=== PATIENT | male | born 1970 | race African-American/Black ===

== ENCOUNTER 2016-12-04 15:05 | Emergency (ER) | payer BC ==
[2016-12-04] MEDS ORDERED: ASPIRIN 81 MG TABLET, CHEWABLE PO ONE (15:51)
[2016-12-04 16:08] LABS: ABSOLUTE EOSINOPHILS # (AUTO) 0.1 10^3/uL (0.0-0.6); ABSOLUTE LYMPHOCYTES (AUTO) 1.1 10^3/uL (0.5-4.7); ABSOLUTE MONOCYTES (AUTO) 0.6 10^3/uL (0.1-1.4); ABSOLUTE NEUT (AUTO) 4.8 10^3/uL (1.7-8.2); BASOPHILS % (AUTO) 0.3 % (0-2); EOSINOPHILS % (AUTO) 1.1 % (0-6); HEMATOCRIT 41.4 % (37.9-51.0); HEMOGLOBIN 13.6 g/dL (13.5-17.0); HGB HCT DIFFERENCE -0.6; LYMPHOCYTES % (AUTO) 17.1 % (13-45); MEAN CORPUSCULAR HEMOGLOBIN 25.4 pg (27.0-33.4); MEAN CORPUSCULAR HGB CONC 32.7 g/dL (32.0-36.0); MEAN CORPUSCULAR VOLUME 78 fl (80-97); MONOCYTES % (AUTO) 8.8 % (3-13); RED BLOOD COUNT 5.34 10^6/uL (4.35-5.55); RED CELL DISTRIBUTION WIDTH 14.3 % (11.5-14.0); SEGMENTED NEUTROPHILS % (AUTO) 72.7 % (42-78); WHITE BLOOD COUNT 6.5 10^3/uL (4.0-10.5)
--- NOTE | 2016-12-04 16:12 | RADIOLOGY REPORT (SQ) ---
EXAM DESCRIPTION: CHEST SINGLE VIEW COMPLETED DATE/TIME: 12/04/2016 4:02 pm REASON FOR STUDY: cp COMPARISON: October 2015 EXAM PARAMETERS: NUMBER OF VIEWS: One view. TECHNIQUE: Single frontal radiographic view of the chest acquired. RADIATION DOSE: NA LIMITATIONS: None. FINDINGS: LUNGS AND PLEURA: No opacities, masses or pneumothorax. No pleural effusion. MEDIASTINUM AND HILAR STRUCTURES: No masses. Contour normal. HEART AND VASCULAR STRUCTURES: Cardiac silhouette remains enlarged and is unchanged in configuration. BONES: No acute findings. HARDWARE: None in the chest. OTHER: No other significant finding. IMPRESSION: No significant interval change. Cardiomegaly. No acute findings. Other findings as no sindi above TECHNICAL DOCUMENTATION: JOB ID: [id number]
[2016-12-04 16:26] LABS: ALANINE AMINOTRANSFERASE 45 U/L (21-72); ALBUMIN 4.2 g/dL (3.5-5.0); ALKALINE PHOSPHATASE 108 U/L (38-126); ANION GAP 12 (5-19); ASPARTATE AMINO TRANSFERASE 25 U/L (17-59); BILIRUBIN,DIRECT 0.3 mg/dL (0.0-0.4); BILIRUBIN,TOTAL 0.5 mg/dL (0.2-1.3); BLOOD UREA NITROGEN 12 mg/dL (7-20); CALCIUM 10.9 mg/dL (8.4-10.2); CARBON DIOXIDE 28 mmol/L (22-30); CHLORIDE 94 mmol/L (98-107); CREATINE KINASE 253 U/L (55-170); CREATININE RESULT 0.94 mg/dL (0.52-1.25); POTASSIUM 4.4 mmol/L (3.6-5.0); TOTAL PROTEIN 7.8 g/dL (6.3-8.2)
[2016-12-04 16:34] LABS: GLUCOSE 546 mg/dL (75-110)
[2016-12-04 16:44] LABS: CREATINE KINASE MB 4.28 ng/mL (<4.55)
--- NOTE | 2016-12-04 16:47 | ER Document Report ---
ED Cardiac - General Mode of Arrival: Ambulatory Information source: Patient TRAVEL OUTSIDE OF THE [place] IN LAST 30 DAYS: No - HPI Patient complains to provider of: Chest pain, Chest tightness, Shortness of breath Similar symptoms previously: Yes Recently seen / treated by doctor: No <JAYCEE ROSA - Last Filed: 12/04/16 19:33> <PATITO SELF - Last Filed: 12/04/16 23:42> - General Chief Complaint: Chest Pain Stated Complaint: CHEST PAIN Time Seen by Provider: 12/04/16 16:36 Notes: Patient is a 46 year old male presenting to the emergency department for chest pain and shortness of breath x1 week. Patient states his CHF is acting up. Patient describes his pain as pressure and constant. Patinet states his shortness of breath has been gradual but was worse today. Patient has gained 10 lbs since Monday. Patient states he takes lasix x3 per day but does not know the dose. Patient has increased chest pain and shortness of breath with exertion and activity. Patient takes ASA daily but did not take any today. Patient was given 4 baby aspirin here in the ED at arrival. Patient denies any nausea, vomiting, diarrhea or history of cardiac catheterization, AR, PE/DVT, or pacemaker/defibrillator. Patient was diagnosed with CHF x1 year ago. Patient' s EEG showed 26%. Patient also has a history of type 2 diabetes mellitus and hypertension. Patient denies any recent medication changes. Patient states he has been eating lots of fruit and he states he didn't know that fruit has a lot of sugar in it. 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 (JAYCEE ROSA) - Related Data Allergies/Adverse Reactions: lisinopril Allergy (Intermediate, Verified 09/20/15 22:47) angioedema shrimp Allergy (Severe, Uncoded 09/20/15 23:06) Swelling of Throat Past Medical History - General Information source: Patient - Social History Smoking Status: Never Smoker Cigarette use (# per day): No Chew tobacco use (# tins/day): No Smoking Education Provided: No Frequency of alcohol use: None Drug Abuse: None Family History: DM, Hypertension Patient has suicidal ideation: No Patient has homicidal ideation: No - Past Medical History Cardiac Medical History: Reports: Hx Congestive Heart Failure, Hx Hypertension Endocrine Medical History: Reports: Hx Diabetes Mellitus Type 2 Past Surgical History: Reports: Hx Orthopedic Surgery - bilateral knee, left wrist - Immunizations Hx Diphtheria, Pertussis, Tetanus Vaccination: Yes <SHELLEYIVANIAJAYCEE - Last Filed: 12/04/16 19:33> Review of Systems - Review of Systems Constitutional: No symptoms reported EENT: No symptoms reported Cardiovascular: See HPI, Chest pain Respiratory: See HPI, Short of breath Gastrointestinal: No symptoms reported Genitourinary: No symptoms reported Male Genitourinary: No symptoms reported Musculoskeletal: See HPI, Leg swelling, Ankle swelling Skin: No symptoms reported Hematologic/Lymphatic: No symptoms reported Neurological/Psychological: No symptoms reported -: Yes All other systems reviewed and negative <JAYCEE ROSA - Last Filed: 12/04/16 19:33> Physical Exam - Vital signs Interpretation: Hypertensive <JAYCEE ROSA - Last Filed: 12/04/16 19:33> <PATITO SELF - Last Filed: 12/04/16 23:42> - Vital signs Vitals: Temp Pulse Resp BP Pulse Ox 97.6 F 99 21 H 150/116 H 97 12/04/16 15:20 12/04/16 15:20 12/04/16 15:20 12/04/16 15:20 12/04/16 15:20 - Notes Notes: GENERAL: Alert, interacts well. Moderate distress. HEAD: Normocephalic, atraumatic. EYES: Appear normal. Pupils equal, round, and reactive to light. ENT: Moist mucus membranes, tongue midline. NECK: Full range of motion. Supple. Trachea midline. LUNGS: Clear to auscultation bilaterally, no wheezes, rales, or rhonchi. No respiratory distress. HEART: Regular rate and rhythm. No murmurs, gallops, or rubs. ABDOMEN: Soft, generalized tenderness throughout, patient states he feels like he has fluid there. Non-distended. Normal bowel sounds. EXTREMITIES: Moves all 4 extremities spontaneously. Normal strength. Lower extremity edema bilaterally. NEUROLOGICAL: Alert and oriented x3. Normal speech. No focal neurological deficits. GSC 15. PSYCH: Normal affect, normal mood. SKIN: Warm, dry, normal turgor. No rashes or lesions noted. (JAYCEE ROSA) Course - Laboratory Result Diagrams: 12/04/16 15:55 12/04/16 15:55 - Consults Dr. Rebeca Time consulted: 17:44 [facility] Time consulted: 18:02 <JAYCEE ROSA - Last Filed: 12/04/16 19:33> - Laboratory Result Diagrams: 12/04/16 15:55 12/04/16 15:55 <PATITO SELF - Last Filed: 12/04/16 23:42> - Re-evaluation Re-evalutation: 12/04/16 18:27 Patient presents emergency department with a chief complaint of chest pain and shortness of breath. Patient is a [id number] diabetic with a history of diagnosis of congestive heart failure 1 year ago. He sees a construction estimator Dr. Mcdonough here. Denies ever having a heart catheterization. He comes in with a 1-1/2 week history of left-sided chest tightness and shortness of breath. He has not been on insulin in the past and was unaware that eating fruits and grapes or sugar. Here on examination initially he denies any chest pain he is not actively short of breath and his blood pressure slightly elevated but is not hypoxic tachypneic or tachycardic. On examination he is well-appearing nontoxic denies any chest pain or pressure lungs are clear abdomen is soft no peripheral edema. Chest x-ray does not show any abnormalities BNP is only in the 200 range but his troponin came back elevated at 0.104. His EKG #1 showed left ventricular hypertrophy IVCD but no acute ST segment elevation or depression. Repeat EKG after he said he was having some chest tightness is unchanged from the previous. He was given nitro and aspirin as well as Lovenox with resolution of the discomfort. I spoke with the on-call construction estimator here who feels the patient needs to be transferred to have a heart catheterization. I spoke with the construction estimator at [facility] Dr. Rosario who has accepted the patient to [facility] pending a heart catheterization. Right now he is chest pain-free hemodynamically stable has received aspirin nitro and Lovenox. We are making arrangements for transfer to the facility. In addition that he is hyperglycemic and has been started on insulin. Patient reassessed at 1845 states he is having some chest discomfort. He received 3 sublingual nitroglycerin still with minimal discomfort EKG #3 unchanged from previous. Repeat troponin pending transfer and is due to occur at the 4 hour interval. He has been given aspirin and Lovenox. 12/04/16 22:00 Patient seen and evaluated and assessed at bedside he is chest pain-free hemodynamically stable they are here to transport him to [facility]. He is awake alert denies any chest pain shortness of breath and there is no respiratory distress. (PATITO SELF) - Vital Signs Vital signs: Temp Pulse Resp BP Pulse Ox 97.6 F 99 21 H 139/76 H 96 12/04/16 15:20 12/04/16 15:20 12/04/16 19:16 12/04/16 21:01 12/04/16 21:01 - Laboratory Laboratory results interpreted by me: 12/04/16 12/04/16 12/04/16 15:55 15:55 15:55 MCV 78 L MCH 25.4 L RDW 14.3 H Sodium 134.0 L Chloride 94 L Glucose 546 H* POC Glucose Calcium 10.9 H Creatine Kinase 253 H NT-Pro-B Natriuret Pep 298 H 12/04/16 18:43 MCV MCH RDW Sodium Chloride Glucose POC Glucose 354 H Calcium Creatine Kinase NT-Pro-B Natriuret Pep - EKG Interpretation by Me Additional EKG results interpreted by me: 12/04/16 18:30 EKG #1 sinus rhythm at 94 bpm with first-degree AV block left ventricular hypertrophy no acute ST segment elevation or depression EKG #2 sinus rhythm at 88 bpm with nonspecific IVCD and left ventricular hypertrophy unchanged from previous 12/04/16 19:04 EKG #3 shows sinus rhythm at 84 bpm nonspecific IVCD no acute ST segment elevation or depression (PATITO SELF) - Consults Dr. Jose Reason for consultation: 12/04/16 18:[address] Jose who recommends the patient needs a cardiac catheterization and the patient should be transferred. (JAYCEE ROSA) [facility] Reason for consultation: 12/04/16 18:02 Contact[address] [facility] for possible transfer, they will call back. 12/04/16 18:[address] Taylor who accepts the patient. (JAYCEE ROSA) Critical Care Note - Critical Care Note Total time excluding time spent on procedures (mins): 70 <PATITO SELF - Last Filed: 12/04/16 23:42> Discharge <EDGREN,JAYCEE - Last Filed: 12/04/16 19:33> <PATITO SELF - Last Filed: 12/04/16 23:42> - Discharge Clinical Impression: Non-STEMI, Hyperglycemia Chest pain Qualifiers: Chest pain type: unspecified Qualified Code(s): R07.9 - Chest pain, unspecified Condition: Stable Disposition: [facility] Referrals: SANJEEV MCDONOUGH MD [Primary Care Provider] - Follow up as needed Scribe Attestation: 12/04/16 19:14 I personally performed the services described in the documentation reviewed the documentation recorded by my scribe in my presence and it accurately and completely records my words and actions (PATITO SELF) Scribe Documentation - Scribe Written by Scrcarolee:: Jese Hernadez 12/04/16 17:37 acting as scribe for :: Claudio <JAYCEE ROSA - Last Filed: 12/04/16 19:33>
[2016-12-04 16:49] LABS: TROPONIN I 0.104 ng/mL
[2016-12-04] MEDS ORDERED: NORMAL SALINE 250 ML IV ONE (17:47)
[2016-12-04] MEDS ORDERED: INSULIN REG, HUMAN 100 UNIT/ML 3 ML VIAL (PYX) IV ONE (17:48)
[2016-12-04] MEDS ORDERED: NITROGLYCERIN 0.4 MG/TAB 25 TAB/BOTTLE SL PRN (18:11)
[2016-12-04] MEDS ORDERED: NITROGLYCERIN 0.4 MG/TAB 25 TAB/BOTTLE ONE (18:12)
[2016-12-04] MEDS ORDERED: NITROGLYCERIN 2% OINTMENT 1 GM PACKET TP ONE (18:46)
[2016-12-04] MEDS ORDERED: ENOXAPARIN SODIUM INJ 100 MG/1 ML DISP.SYRIN SUBCUT SCH (19:15)
[2016-12-04] MEDS ORDERED: ENOXAPARIN SODIUM INJ 100 MG/1 ML DISP.SYRIN SUBCUT ONE (19:45)
[2016-12-04 21:20] VITALS: BP 139/76
[2016-12-05] MEDS ORDERED: ENOXAPARIN SODIUM INJ 100 MG/1 ML DISP.SYRIN SUBCUT SCH (10:00)
--- NOTE | 2016-12-05 13:56 | EKG REPORT ---
SEVERITY:- ABNORMAL ECG - SINUS RHYTHM PROBABLE LEFT ATRIAL ABNORMALITY NONSPECIFIC INTRAVENTRICULAR CONDUCTION DELAY LEFT VENTRICULAR HYPERTROPHY : Confirmed by: Mariana Montano MD 05-Dec-2016 13:56:37
--- NOTE | 2016-12-05 13:57 | EKG REPORT ---
SEVERITY:- ABNORMAL ECG - SINUS RHYTHM FIRST DEGREE AV BLOCK LEFT ATRIAL ABNORMALITY NONSPECIFIC INTRAVENTRICULAR CONDUCTION DELAY LEFT VENTRICULAR HYPERTROPHY : Confirmed by: Mariana Montano MD 05-Dec-2016 13:56:47
--- NOTE | 2016-12-05 13:57 | EKG REPORT ---
SEVERITY:- ABNORMAL ECG - SINUS RHYTHM PROBABLE LEFT ATRIAL ABNORMALITY NONSPECIFIC INTRAVENTRICULAR CONDUCTION DELAY LEFT VENTRICULAR HYPERTROPHY : Confirmed by: Mariana Montano MD 05-Dec-2016 13:56:42
== END 2016-12-04 21:59 | disposition short-term general hospital (02) ==
LOC: ER 15:05
DX: R07.9 Chest pain, unspecified (principal); R06.02 Shortness of breath; I50.9 Heart failure, unspecified; Z79.899 Other long term (current) drug therapy; E11.9 Type 2 diabetes mellitus without complications; I10 Essential (primary) hypertension
CPT/HCPCS: 93005 ×2; 99291; 36415; 82553; 82962; 82550; 85025; 80053; 84484; 83880; 71010; 93010; J1815; J7050

== ENCOUNTER 2017-04-03 09:32 | Observation (INO) | payer BC ==
--- NOTE | 2017-04-03 09:47 | ER Document Report ---
ED Medical Screen (RME) - General Chief Complaint: Chest Pain Stated Complaint: NOSE BLEEDING Time Seen by Provider: 04/03/17 09:45 Notes: Patient has a history of congestive heart failure. He states that he has chest pressure shortness of breath and has had a bloody nose from both sides. He states he has not missed any doses of his medicines. He did take an aspirin this morning. He denies any other type of blood thinners. He says he also has diabetes and his blood sugars have been high. He states that he has had no major surgeries. TRAVEL OUTSIDE OF THE [place] IN LAST 30 DAYS: No - Related Data Allergies/Adverse Reactions: lisinopril Allergy (Intermediate, Verified 04/03/17 09:34) angioedema shrimp Allergy (Severe, Uncoded 04/03/17 09:34) Swelling of Throat Past Medical History - Past Medical History Cardiac Medical History: Reports: Hx Congestive Heart Failure, Hx Hypertension Endocrine Medical History: Reports: Hx Diabetes Mellitus Type 2 Renal/ Medical History: Denies: Hx Peritoneal Dialysis Past Surgical History: Reports: Hx Orthopedic Surgery - bilateral knee, left wrist - Immunizations Hx Diphtheria, Pertussis, Tetanus Vaccination: Yes Physical Exam - Vital signs Vitals: Temp Pulse Resp BP Pulse Ox 97.7 F 83 18 214/132 H 99 04/03/17 09:36 04/03/17 09:36 04/03/17 09:36 04/03/17 09:36 04/03/17 09:36 Course - Vital Signs Vital signs: Temp Pulse Resp BP Pulse Ox 97.7 F 83 18 214/132 H 99 04/03/17 09:36 04/03/17 09:36 04/03/17 09:36 04/03/17 09:36 04/03/17 09:36
[2017-04-03 10:10] LABS: ABSOLUTE BASOPHILS # (AUTO) 0.1 10^3/uL (0.0-0.2); ABSOLUTE EOSINOPHILS # (AUTO) 0.1 10^3/uL (0.0-0.6); ABSOLUTE LYMPHOCYTES (AUTO) 1.7 10^3/uL (0.5-4.7); ABSOLUTE MONOCYTES (AUTO) 0.7 10^3/uL (0.1-1.4); ABSOLUTE NEUT (AUTO) 4.7 10^3/uL (1.7-8.2); BASOPHILS % (AUTO) 0.8 % (0-2); HEMATOCRIT 40.8 % (37.9-51.0); HEMOGLOBIN 13.3 g/dL (13.5-17.0); HGB HCT DIFFERENCE -0.9; LYMPHOCYTES % (AUTO) 23.8 % (13-45); MEAN CORPUSCULAR HEMOGLOBIN 25.2 pg (27.0-33.4); MEAN CORPUSCULAR HGB CONC 32.6 g/dL (32.0-36.0); MEAN CORPUSCULAR VOLUME 77 fl (80-97); MONOCYTES % (AUTO) 9.9 % (3-13); RED BLOOD COUNT 5.28 10^6/uL (4.35-5.55); RED CELL DISTRIBUTION WIDTH 14.4 % (11.5-14.0); SEGMENTED NEUTROPHILS % (AUTO) 64.5 % (42-78); WHITE BLOOD COUNT 7.3 10^3/uL (4.0-10.5)
[2017-04-03] MEDS: NITROGLYCERIN 0.4 MG/TAB 25 TAB/BOTTLE SL PRN ×2 (10:20→10:25)
--- NOTE | 2017-04-03 10:20 | RADIOLOGY REPORT (SQ) ---
EXAM DESCRIPTION: CHEST PA/LAT COMPLETED DATE/TIME: 04/03/2017 10:06 am REASON FOR STUDY: pain COMPARISON: 12/04/2016 EXAM PARAMETERS: NUMBER OF VIEWS: two views TECHNIQUE: Digital Frontal and Lateral radiographic views of the chest acquired. RADIATION DOSE: NA LIMITATIONS: none FINDINGS: LUNGS AND PLEURA: No opacities, masses or pneumothorax. No pleural effusion. MEDIASTINUM AND HILAR STRUCTURES: No masses or contour abnormalities. HEART AND VASCULAR STRUCTURES: Cardiomegaly. No failure. BONES: No acute findings. HARDWARE: None in the chest. OTHER: No other significant finding. IMPRESSION: Cardiomegaly. No failure. TECHNICAL DOCUMENTATION: JOB ID: [id number] [employer]- All Rights Reserved
[2017-04-03 10:32] LABS: ALANINE AMINOTRANSFERASE 37 U/L (21-72); ALBUMIN 4.1 g/dL (3.5-5.0); ALKALINE PHOSPHATASE 87 U/L (38-126); ANION GAP 14 (5-19); ASPARTATE AMINO TRANSFERASE 45 U/L (17-59); BILIRUBIN,DIRECT 0.4 mg/dL (0.0-0.4); BILIRUBIN,TOTAL 0.9 mg/dL (0.2-1.3); BLOOD UREA NITROGEN 14 mg/dL (7-20); CALCIUM 11.2 mg/dL (8.4-10.2); CARBON DIOXIDE 24 mmol/L (22-30); CHLORIDE 103 mmol/L (98-107); CREATININE RESULT 0.76 mg/dL (0.52-1.25); GLUCOSE 162 mg/dL (75-110); POTASSIUM 4.3 mmol/L (3.6-5.0); SODIUM 140.7 mmol/L (137-145); TOTAL PROTEIN 7.4 g/dL (6.3-8.2)
--- NOTE | 2017-04-03 11:13 | ER Document Report ---
ED General - General Chief Complaint: Chest Pain Stated Complaint: NOSE BLEEDING Time Seen by Provider: 04/03/17 09:45 Mode of Arrival: Ambulatory Information source: Patient, Dr. Office Notes: 46-year-old male history of hypertension presents with complaints of chest pain nosebleed. Patient notes that he has been taking his blood pressure medication but noted that he was having a headache. Patient denies any fevers or chills notes the pressure sensations in his chest. Patient had a recent heart catheterization in August and and was told that there is no blockage, patient did contact his zone manager Dr. Montano TRAVEL OUTSIDE OF THE [place] IN LAST 30 DAYS: No - HPI Onset: Other - 3 day duration Onset/Duration: Intermittent Quality of pain: Pressure Severity: Mild Pain Level: 1 Associated symptoms: Chest pain Exacerbated by: Denies Relieved by: Denies Similar symptoms previously: Yes Recently seen / treated by doctor: Yes - Related Data Allergies/Adverse Reactions: shellfish derived Allergy (Severe, Verified 04/03/17 13:13) Swelling of Throat lisinopril Allergy (Intermediate, Verified 04/03/17 09:34) angioedema Past Medical History - Social History Smoking Status: Never Smoker Cigarette use (# per day): No Chew tobacco use (# tins/day): No Smoking Education Provided: No Frequency of alcohol use: None Drug Abuse: None Family History: DM, Hypertension Patient has suicidal ideation: No Patient has homicidal ideation: No - Past Medical History Cardiac Medical History: Reports: Hx Congestive Heart Failure, Hx Hypertension Endocrine Medical History: Reports: Hx Diabetes Mellitus Type 2 Renal/ Medical History: Denies: Hx Peritoneal Dialysis Past Surgical History: Reports: Hx Orthopedic Surgery - bilateral knee, left wrist - Immunizations Hx Diphtheria, Pertussis, Tetanus Vaccination: Yes Review of Systems - Review of Systems Notes: REVIEW OF SYSTEMS: CONSTITUTIONAL : Denies fever, chills, or sweats. Denies recent illness. EENT: Admits to nosebleed CARDIOVASCULAR: Admits to chest pain RESPIRATORY: Denies cough, cold, or chest congestion. Denies shortness of breath, difficulty breathing, or wheezing. GASTROINTESTINAL: Denies abdominal pain or distention. Denies nausea, vomiting , or diarrhea. Denies blood in vomitus, stools, or per rectum. Denies black, tarry stools. Denies constipation. GENITOURINARY: Denies difficulty urinating, painful urination, burning, frequency, blood in urine, or discharge. MUSCULOSKELETAL: Denies back or neck pain or stiffness. Denies joint pain or swelling. SKIN: Denies rash, lesions or sores. HEMATOLOGIC : Denies easy bruising or bleeding. LYMPHATIC: Denies swollen, enlarged glands. NEUROLOGICAL: Denies confusion or altered mental status. Denies passing out or loss of consciousness. Denies dizziness or lightheadedness. Denies headache. Denies weakness or paralysis or loss of use of either side. Denies problems with gait or speech. Denies sensory loss, numbness, or tingling. Denies seizures. PSYCHIATRIC: Denies anxiety or stress. Denies depression, suicidal ideation, or homicidal ideation. ALL OTHER SYSTEMS REVIEWED AND NEGATIVE. Dictation was performed using [employer] voice recognition software PHYSICAL EXAMINATION: GENERAL: Well-appearing, well-nourished and in no acute distress. HEAD: Atraumatic, normocephalic. EYES: Pupils equal round and reactive to light, extraocular movements intact, sclera anicteric, conjunctiva are normal. ENT: Nares patent, oropharynx clear without exudates. Moist mucous membranes. NECK: Normal range of motion, supple without lymphadenopathy LUNGS: Breath sounds clear to auscultation bilaterally and equal. No wheezes rales or rhonchi. HEART: Regular rate and rhythm without murmurs ABDOMEN: Soft, nontender, nondistended abdomen. No guarding, no rebound. No masses appreciated. Musculoskeletal: Normal range of motion, no pitting or edema. No cyanosis. NEUROLOGICAL: Cranial nerves grossly intact. Normal speech, normal gait. Normal sensory, motor exams PSYCH: Normal mood, normal affect. SKIN: Warm, Dry, normal turgor, no rashes or lesions noted. Physical Exam - Vital signs Vitals: Temp Pulse Resp BP Pulse Ox 97.7 F 83 18 214/132 H 99 04/03/17 09:36 04/03/17 09:36 04/03/17 09:36 04/03/17 09:36 04/03/17 09:36 Course - Re-evaluation Re-evalutation: 04/03/17 11:13 Dr Garcia requests patient be admitted 04/03/17 15:20 On arrival the patient was noted to be hypertensive, cardiac enzyme is noted to be elevated and in the positive range, it is during the previous visit that the patient was also noted to have mildly elevated troponin and as a result patient it appears had a heart catheterization performed which was negative. Given these findings I did speak with the patient's zone manager, I did offer the transfer and heparin but zone manager would prefer to keep patient here for further evaluation care he was given nitroglycerin which did improve his blood pressure - Vital Signs Vital signs: Temp Pulse Resp BP Pulse Ox 97.7 F 83 18 169/115 H 99 04/03/17 09:36 04/03/17 09:36 04/03/17 13:02 04/03/17 13:02 04/03/17 13:02 - Laboratory Result Diagrams: 04/03/17 09:54 04/03/17 09:54 Laboratory results interpreted by me: 04/03/17 04/03/17 09:54 09:54 Hgb 13.3 L MCV 77 L MCH 25.2 L RDW 14.4 H Glucose 162 H Calcium 11.2 H - Diagnostic Test Radiology reviewed: Image reviewed, Reports reviewed - EKG Interpretation by Me EKG shows normal: Sinus rhythm, [place], Intervals, QRS Complexes Critical Care Note - Critical Care Note Total time excluding time spent on procedures (mins): 45 Comments: 45 minutes of critical care time spent in direct contact evaluating and reevaluating the patient, treating symptoms, reviewing labs and studies and speaking with family and consultants excluding any procedures Discharge - Discharge Clinical Impression: Hypertensive emergency Congestive heart failure Qualifiers: Congestive heart failure type: unspecified congestive heart failure type Congestive heart failure chronicity: unspecified congestive heart failure chronicity Qualified Code(s): I50.9 - Heart failure, unspecified Chest pain Qualifiers: Chest pain type: unspecified Qualified Code(s): R07.9 - Chest pain, unspecified Condition: Stable Disposition: ADMITTED OBSERVATION Admitting Provider: Hospitalist Unit Admitted: Telemetry
[2017-04-03] MEDS ORDERED: ASPIRIN 325 MG TABLET PO ONE (11:14)
[2017-04-03] MEDS ORDERED: MORPHINE SULFATE 10 MG/ML INJ IV ONE (11:15)
[2017-04-03] MEDS ORDERED: ACETAMINOPHEN 325 MG TABLET PO PRN (12:38)
[2017-04-03] MEDS ORDERED: IPRATROPIUM/ALBUTEROL 0.5-2.5 MG/3 ML AMPUL NEB PRN (12:38)
[2017-04-03] MEDS ORDERED: LABETALOL HCL INJ 20 MG/4 ML DISP.SYRIN IV PRN (13:05)
--- NOTE | 2017-04-03 13:57 | EKG REPORT ---
SEVERITY:- ABNORMAL ECG - SINUS RHYTHM FIRST DEGREE AV BLOCK LEFT ATRIAL ABNORMALITY NONSPECIFIC INTRAVENTRICULAR CONDUCTION DELAY : Confirmed by: Jennifer Jose 03-Apr-2017 13:56:49
[2017-04-03] MEDS: NICARDIPINE HCL RTU, ISO-OS 20 MG/200 ML RTUINJ IV PRN ×2 (16:09→21:38)
[2017-04-03] MEDS ORDERED: DEXTROSE 40% GEL 15 GM TUBE PO PRN ×2 (17:05)
[2017-04-03] MEDS ORDERED: GLUCAGON,HUMAN RECOMB 1 MG INJ IM PRN (17:05)
[2017-04-03] MEDS ORDERED: DEXTROSE 50%-WATER 25 GM/50 ML DISP.SYRIN IV PRN ×2 (17:05)
--- NOTE | 2017-04-03 17:13 | PDOC H&P ---
History of Present Illness Admission Date/PCP: 04/03/17 11:56 SANJEEV MCDONOUGH MD History of Present Illness: TANYA CLEARY JR is a 46 year old -[place] male with past medical history significant for hypertension, congestive heart failure with a last known EF of 25%, dyslipidemia diabetes mellitus who presents to the service with elevated blood pressure. Patient states today that he developed a headache , nosebleed 4 and pain in the back of his head. Patient states that on Monday his water was cut off. He states he has been limited his home for the last 4 years and he did not understand why his water suddenly got cut off. He feels that the water people should have contacted him prior to doing that. Patient states that he had the plate $200 again to cut back on. He says that this made his blood boil. He states that he is not a violent man and that he usually holds his anger and. Holding this anger in is what caused his blood pressure to go up. The patient essentially says he has been festering about this water issue over the weekend and that that is why his blood pressure is up. He felt that his blood pressure was likely up so he checked it. He got elevated numbers in the 200s and proceeded to Dr. Mcdonough's office. Dr. Mcdonough redirected him to come into the ED. On arrival the patient's blood pressure was 230/140. He was given a nitroglycerin tablet and morphine. This brought his blood pressure down to 170/120. Patient currently complains of headache and chest pain. Patient states he has some nausea as well as some intermittent shortness of breath. His nosebleeds have stopped. In the past he has been admitted for this and was found to be noncompliant. The patient states that he is turned that around that he is been very compliant with his medications and takes them every day. Past Medical History Cardiac Medical History: Reports: Congestive Heart Failure, Hypertension Endocrine Medical History: Reports: Diabetes Mellitus Type 2 Past Surgical History Past Surgical History: Reports: Orthopedic Surgery - bilateral knee, left wrist Social History Smoking Status: Never Smoker Frequency of Alcohol Use: None Hx Recreational Drug Use: No Drugs: None Hx Prescription Drug Abuse: No - Advance Directive Resuscitation Status: Full Code Family History Family History: DM, Hypertension Parental Family History Reviewed: Yes Children Family History Reviewed: Yes Sibling(s) Family History Reviewed.: Yes Medication/Allergy Home Medications: Amlodipine Besylate [Norvasc 10 mg Tablet] 10 mg PO DAILY 04/03/17 Furosemide [Lasix 40 mg Tablet] 40 mg PO BID 04/03/17 Insulin Glargine,Hum.rec.anlog [Lantus Insulin 100 Unit/1 ml 10 ml] 14 units SUBCUT QHS 04/03/17 Insulin Lispro [Humalog Insulin (Lispro) 100 unit/mL] 2 units SUBCUT MEALS 04/03 Metformin HCl [Glucophage 500 mg Tablet] 500 mg PO BID 04/03/17 Metoprolol Succinate [Toprol Xl 25 mg Tab.sr] 75 mg PO DAILY 04/03/17 Allergies/Adverse Reactions: shellfish derived Allergy (Severe, Verified 04/03/17 13:13) Swelling of Throat lisinopril Allergy (Intermediate, Verified 04/03/17 09:34) angioedema Review of Systems Review of Systems: Review of systems is positive for that listed in the HPI. In addition to that the patient states he has a bit of abdominal pain. He says that he has left elbow and left wrist arthritis. He also states he has had diarrhea 4 times today. He denies any fevers, chills, blood in urine, blood in the stool, throwing up blood or coughing up blood. He denies constipation or any sick contacts. He states that he is been trying to lose weight. He says that he has been successful but that this last few pounds have been unintentional. Physical Exam Vital Signs: Temp Pulse Resp BP Pulse Ox 97.7 F 83 20 182/129 H 100 04/03/17 09:36 04/03/17 09:36 04/03/17 12:02 04/03/17 12:02 04/03/17 12:02 GENERAL: This is a well-developed well-nourished appearing -[place] male resting in bed currently in no acute distress. HEENT: Normocephalic. Atraumatic. Sclera are and icterus. Moist mucous membranes. Trachea is midline. No submandibular lymphadenopathy. HEART: Regular rate and rhythm. No murmurs, rubs or gallops. LUNGS: Clear to auscultation bilaterally with equal rise and fall of the chest. ABDOMEN: Soft, nontender, nondistended with normoactive bowel sounds EXTREMETIES: No clubbing, cyanosis or edema. 2+ peripheral pulses bilaterally. Strength is 5 out of 5 in both the upper and lower extremities bilaterally. NEURO: Awake, alert and oriented 3. Cranial nerves II through XII are specifically intact. Results Impressions: Chest X-Ray 04/03/17 09:46 IMPRESSION: Cardiomegaly. No failure. Assessment & Plan - Diagnosis (1) Hypertensive emergency Plan: Patient's blood pressure is still extremely elevated. As needed labetalol is ordered. The patient will be started on a Cardene drip. We will cancel all of his home medications for now. Patient will go to the ICU so that the Cardizem drip can be appropriately titrated. Dr. Mcdonough will be following. (2) Chest pain Qualifiers: Chest pain type: unspecified Qualified Code(s): R07.9 - Chest pain, unspecified Plan: Likely secondary to the patient's hypertensive emergency. Troponins are slightly bumped. I suspect that this is due to strain placed on his heart. Repeat troponins 2. (3) Congestive heart failure Qualifiers: Congestive heart failure type: systolic Congestive heart failure chronicity : chronic Qualified Code(s): I50.22 - Chronic systolic (congestive) heart failure Plan: Last known EF was 25%. The patient usually follows with Dr. Mcdonough. Right now the patient looks very euvolemic. Continue to monitor. (4) Diabetes mellitus type II, controlled Plan: Q. before meals at bedtime blood sugars. Diabetic diet. Verify home medications. Sliding scale insulin. - Time Time Spent: 50 to 70 Minutes Anticipated discharge: Home Within: within 48 hours
[2017-04-03] MEDS: FUROSEMIDE 40 MG TABLET PO SCH (17:35)
[2017-04-03] MEDS ORDERED: HYDRALAZINE HCL 50 MG TABLET PO SCH (18:00)
[2017-04-03] MEDS: MORPHINE SULFATE 10 MG/ML INJ IV PRN (19:20)
[2017-04-03] MEDS ORDERED: METOPROLOL SUCCINATE 50 MG TAB.SR.24H PO SCH (22:00)
[2017-04-03] MEDS ORDERED: ATORVASTATIN CALCIUM 20 MG TABLET PO SCH (22:00)
[2017-04-03] MEDS ORDERED: AMLODIPINE BESYLATE 5 MG TABLET PO SCH (22:00)
[2017-04-03] MEDS: INSULIN REG, HUMAN 100 UNIT/ML 3 ML VIAL (PYX) SUBCUT SCH (23:01)
[2017-04-04] MEDS: MORPHINE SULFATE 10 MG/ML INJ IV PRN (03:16)
[2017-04-04 04:19] LABS: HEMATOCRIT 41.2 % (37.9-51.0); HEMOGLOBIN 13.4 g/dL (13.5-17.0); MEAN CORPUSCULAR HEMOGLOBIN 25.1 pg (27.0-33.4); MEAN CORPUSCULAR HGB CONC 32.5 g/dL (32.0-36.0); MEAN CORPUSCULAR VOLUME 77 fl (80-97); RED BLOOD COUNT 5.33 10^6/uL (4.35-5.55); RED CELL DISTRIBUTION WIDTH 14.6 % (11.5-14.0); WHITE BLOOD COUNT 7.7 10^3/uL (4.0-10.5)
[2017-04-04] MEDS: NICARDIPINE HCL RTU, ISO-OS 20 MG/200 ML RTUINJ IV PRN (04:31)
[2017-04-04 04:35] LABS: ANION GAP 14 (5-19); BLOOD UREA NITROGEN 12 mg/dL (7-20); CALCIUM 10.9 mg/dL (8.4-10.2); CARBON DIOXIDE 25 mmol/L (22-30); CHLORIDE 103 mmol/L (98-107); CREATININE RESULT 0.78 mg/dL (0.52-1.25); GLUCOSE 246 mg/dL (75-110); POTASSIUM 3.6 mmol/L (3.6-5.0); SODIUM 141.5 mmol/L (137-145)
[2017-04-04] MEDS: INSULIN REG, HUMAN 100 UNIT/ML 3 ML VIAL (PYX) SUBCUT SCH ×2 (07:11→11:14)
[2017-04-04] MEDS: FUROSEMIDE 40 MG TABLET PO SCH (09:17)
[2017-04-04] MEDS ORDERED: AMLODIPINE BESYLATE 10 MG TABLET PO SCH (10:00)
[2017-04-04] MEDS ORDERED: METOPROLOL SUCCINATE 25 MG TAB.SR.24H PO SCH (10:00)
--- NOTE | 2017-04-04 12:32 | Physician Advisory Note ---
Physician Advisor ProgressNote .: [facility] I have reviewed the medical record for this patient. Physician Advisor Statement: Please consider documentin. "chronic systolic CHF" 2. Medical necessity - Please document explicitly the ongoing clinical concerns today- what he could develop in this setting if not kept in hospital again tonight. Could potentially be appropriate to change to Inpt status today depending on level of attending concern/severity of illness/intensity of service. - Continuing to need Cardene drip, or will be weaned off in a couple hrs? - Continuing to have concerning sx, or resolved? - Repeated tachypnea & bradypneas since coming in worrisome, or just felt to be from chronic MORAIMA that needs CPAP? - Sx of weak/dizzy/pale/diaphoretic at 22:45 with BP in 128-140/70-107 range concerning for how well he will tolerate BP control, reason to continue to monitor more closely than the average HTN pt? Status: appropriately came in as Outpt Obs. If attending finds pt unsafe for d /c today - see above. CK
[2017-04-04 14:29] VITALS: BP 180/105
--- NOTE | 2017-04-04 15:10 | PDOC DISCHARGE SUMMARY ---
General - Admit/Disc Date/PCP Admission Date/Primary Care Provider: 04/03/17 11:56 SANJEEV MCDONOUGH MD Discharge Date: 04/04/17 - Discharge Diagnosis (1) Hypertensive emergency Is this a current diagnosis for this admission?: Yes Summary: Patient's blood pressure has improved. We have increased his Toprol to 100 mg daily. (2) Chest pain Is this a current diagnosis for this admission?: Yes Summary: Patient's troponins were slightly elevated however they were flat and this was most likely secondary to his uncontrolled hypertension. He has had no further chest pain since control of his blood pressure. (3) Congestive heart failure Is this a current diagnosis for this admission?: Yes Summary: Made worse by his blood pressure. He denies any shortness of breath currently. (4) Diabetes mellitus type II, controlled Is this a current diagnosis for this admission?: Yes (5) MORAIMA (obstructive sleep apnea) Is this a current diagnosis for this admission?: Yes - Additional Information Resuscitation Status: Full Code Discharge Diet: Cardiac, Diabetic Discharge Activity: Activity As Tolerated, Balance Activity w/Rest, Weigh Daily Home Medications: Amlodipine Besylate [Norvasc 10 mg Tablet] 10 mg PO DAILY #30 tablet 04/04/17 Atorvastatin Calcium [Lipitor 20 mg Tablet] 20 mg PO QHS #30 tablet 04/04/17 Furosemide [Lasix 40 mg Tablet] 40 mg PO BID #60 tablet 04/04/17 Insulin Glargine,Hum.rec.anlog [Lantus Insulin 100 Unit/1 ml 10 ml] 14 units SUBCUT QHS 30 Days #1 unit 04/04/17 Insulin Lispro [Humalog Insulin (Lispro) 100 unit/mL] 2 units SUBCUT MEALS 30 Days unit 04/04/17 Metformin HCl [Glucophage 500 mg Tablet] 500 mg PO BID #60 tablet 04/04/17 Metoprolol Succinate [Toprol Xl 25 mg Tab.sr] 100 mg PO DAILY #30 tab.sr.24h History of Present Illness History of Present Illness: TANYA CLEARY JR is a 46 year old male with a history of hypertension as well as systolic congestive heart failure who presented with elevated blood pressures. The patient has had problems with headache and epistaxis for the last several days. The patient has been very agitated because his water was cut off in spite of him pain his bills. Patient went to his plastics fabricator and assembler office and was found to have a blood pressure of 230/140. Patient was given nitroglycerin and came to the emergency room. The patient did have an episode of chest pain but has been pain-free since then. He is admitted for treatment of his hypertensive emergency. Hospital Course Hospital Course: 46-year-old male who presented with hypertensive emergency as well as some chest discomfort. The patient's blood pressure was lowered and his chest pain resolved. The patient had troponins checked and they were slightly elevated however they remain flat consistent with hypertensive causes for the elevation. Patient had no further chest pain. His Toprol was increased to 100 mg daily and his blood pressure was under adequate control. Was felt that he was stable for discharge to home. The patient's other medical problems were stable during this hospitalization. Physical Exam Vital Signs: Temp Pulse Resp BP Pulse Ox 97.6 F 76 25 H 180/105 H 98 04/04/17 14:26 04/04/17 14:26 04/04/17 14:26 04/04/17 14:26 04/04/17 14:26 Intake & Output 04/03/17 04/04/17 04/05/17 06:59 06:59 06:59 Intake Total 300 420 Output Total 2950 850 Balance -2650 -430 Weight 115.7 kg General appearance: PRESENT: no acute distress Eye exam: PRESENT: conjunctiva pink. ABSENT: scleral icterus Mouth exam: PRESENT: dry mucosa Neck exam: ABSENT: JVD Respiratory exam: PRESENT: clear to auscultation walter. ABSENT: rales, rhonchi, wheezes Cardiovascular exam: PRESENT: RRR. ABSENT: diastolic murmur, rubs, systolic murmur GI/Abdominal exam: PRESENT: normal bowel sounds, soft. ABSENT: distended, guarding, mass, organolmegaly, rebound, tenderness Extremities exam: ABSENT: calf tenderness, clubbing, pedal edema Neurological exam: PRESENT: alert, awake, oriented to person, oriented to place , oriented to time, oriented to situation, CN II-XII grossly intact. ABSENT: motor sensory deficit Psychiatric exam: PRESENT: appropriate affect Skin exam: PRESENT: dry, intact, warm. ABSENT: cyanosis, rash Results Laboratory Results: 04/04/17 03:57 04/04/17 03:57 04/04/17 04/04/17 03:57 03:57 WBC 7.7 RBC 5.33 Hgb 13.4 L Hct 41.2 MCV 77 L MCH 25.1 L MCHC 32.5 RDW 14.6 H Plt Count 151 Sodium 141.5 Potassium 3.6 Chloride 103 Carbon Dioxide 25 Anion Gap 14 BUN 12 Creatinine 0.78 Est GFR ( Amer) > 60 Est GFR (Non-Af Amer) > 60 Glucose 246 H Calcium 10.9 H Magnesium 2.0 04/03/17 04/04/17 18:27 00:31 Troponin I 0.096 0.094 Impressions: Chest X-Ray 04/03/17 09:46 IMPRESSION: Cardiomegaly. No failure. Qualifiers PATEINT BEING DISCHARGED WITH ANY OF THE FOLLOWING DIAGNOSIS?: No Plan Discharge Plan: Patient is discharged home in stable condition. He will follow-up with his plastics fabricator and assembler tomorrow. Time Spent: Less than 30 Minutes
--- NOTE | 2017-04-04 19:41 | PDOC PROGRESS REPORT ---
Subjective Progress Note for:: 04/04/17 Subjective:: Patient was admitted with severe hypertension. It seems patient was seen by Dr. Montano but a consult report is pending. Patient was started on Cardene drip and subsequently started back on his antihypertensive medication. This morning blood pressure is reasonably well controlled. Physical Exam Vital Signs: Temp Pulse Resp BP Pulse Ox 97.6 F 76 25 H 180/105 H 98 04/04/17 14:26 04/04/17 14:26 04/04/17 14:26 04/04/17 14:26 04/04/17 14:26 Intake & Output 04/03/17 04/04/17 04/05/17 06:59 06:59 06:59 Intake Total 300 420 Output Total 2950 850 Balance -2650 -430 Weight 115.7 kg Exam: GENERAL: well-nourished and in no acute distress. Alert and oriented x3 HEAD: Atraumatic, normocephalic. EYES: Pupils equal round and reactive to light, extraocular movements intact, sclera anicteric, conjunctiva are normal. ENT: TMs normal, nares patent, oropharynx clear without exudates. Moist mucous membranes. No oral ulcerations or bleeding gums noted NECK: supple without lymphadenopathy. Trachea is central. No cervical or axillary lymphadenopathy noted. Carotids are 2+, JVD WNL LUNGS: Respiration seems nonlabored, no significant accessory muscle action noted. Breath sounds clear to auscultation bilaterally and equal noted. No wheezes rales or rhonchi noted. No significant dullness noted on percussion. CHEST: Palpation of the chest wall shows no significant chest wall tenderness. No other significant abnormalities noted. 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 ABDOMEN: Soft, no significant tenderness appreciated, normoactive bowel sounds. No guarding, no rebound. No rigidity noted . No masses appreciated. EXTREMITIES: Pedal pulses are 1-2+, no calf tenderness noted. No clubbing or cyanosis.trace pedal edema noted NEUROLOGICAL: Focused neurological exam showed no significant neurologic deficit. Normal speech, no focal weakness appreciated. PSYCH: Normal mood, normal affect. Judgment and insight within normal limits. SKIN: No significant ecchymosis, rash, ulcerations or signs of pruritus noted. MUSCULOSKELETAL EXAM: No significant joint swelling noted. Results Laboratory Results: 04/04/17 03:57 04/04/17 03:57 04/04/17 04/04/17 03:57 03:57 WBC 7.7 RBC 5.33 Hgb 13.4 L Hct 41.2 MCV 77 L MCH 25.1 L MCHC 32.5 RDW 14.6 H Plt Count 151 Sodium 141.5 Potassium 3.6 Chloride 103 Carbon Dioxide 25 Anion Gap 14 BUN 12 Creatinine 0.78 Est GFR ( Amer) > 60 Est GFR (Non-Af Amer) > 60 Glucose 246 H Calcium 10.9 H Magnesium 2.0 04/03/17 04/04/17 18:27 00:31 Troponin I 0.096 0.094 Impressions: Chest X-Ray 04/03/17 09:46 IMPRESSION: Cardiomegaly. No failure. Assessment & Plan - Diagnosis (1) Hypertensive emergency Is this a current diagnosis for this admission?: Yes (2) Diabetes mellitus type II, controlled Qualifiers: Diabetes mellitus complication status: with unspecified complications Diabetes mellitus nursing home insulin use: unspecified nursing home insulin use status Qualified Code(s): E11.8 - Type 2 diabetes mellitus with unspecified complications Is this a current diagnosis for this admission?: Yes (3) MORAIMA (obstructive sleep apnea) Is this a current diagnosis for this admission?: Yes (4) CHF exacerbation Qualifiers: Congestive heart failure type: unspecified congestive heart failure type Qualified Code(s): I50.9 - Heart failure, unspecified Is this a current diagnosis for this admission?: Yes (5) Chest pain Qualifiers: Chest pain type: unspecified Qualified Code(s): R07.9 - Chest pain, unspecified Is this a current diagnosis for this admission?: Yes (6) Noncompliance with treatment plan Is this a current diagnosis for this admission?: Yes - Notes Notes: Blood pressure now under satisfactory control. Agree with current management plans undertaken by the hospitalist. Compliance with medications advised. Patient told that he will benefit from a sleep study in view of severe hypertension if no other secondary cause of hypertension is noted. Chest pain: Most likely precipitated by hypertension and possibly noncompliance. Patient will benefit from ischemia evaluation but believe this can be performed as an outpatient. Hypertension: Patient came with severe hypertension. Possibly related to noncompliance with both medications and CPAP therapy. Patient encouraged to be compliant with medication. Patient informed that he needs to start on CPAP therapy. CHF: Most likely aggravated by severe hypertension and noncompliance with dietary restriction and medications. Patient advised compliance. Believe that patient most likely has diastolic dysfunction. Will review previous echocardiogram. Further assessment can be performed as an outpatient. Sleep apnea syndrome: Patient advised to undergo a titration study and get on CPAP therapy. Obesity: Patient encouraged in weight loss. - Time Time with patient: Greater than 35 minutes - CODE STATUS was discussed, patient remains full code. Surrogate decision-maker unchanged. Multiple medical problems were addressed. More than 50% of the time spent coordinating care, discussing management plans with involved caregivers. Management plans discussed with involved personnels. Medical decision making was of moderate to high complexity, patient's has multiple comorbidities. Medications reviewed and adjusted accordingly: Yes
[2017-04-04] MEDS ORDERED: INSULIN GLARGINE,HUM.REC.ANLOG 1,000 UNIT/10 ML UNIT SUBCUT SCH ×2 (22:00)
--- NOTE | 2017-04-05 10:11 | CONSULTATION REPORT E ---
Consultation Report NAME: TANYA CLEARY : 1970 AGE: 46Y DATE: 04/04/2017 611 A TO: SANJEEV MCDONOUGH M.D. FROM: TI VILLAGRAN M.D. Requesting Physician DATE OF CONSULTATION: 04/04/2017 REASON FOR CONSULTATION: Axillary hypertension, shortness of breath. HISTORY OF PRESENT ILLNESS: Patient is a 45-year-old male with known history of nonischemic dilated cardiomyopathy with an EF of 25%, hypertension, diabetes mellitus, obstructive sleep apnea, who states that a few days ago his water was cut off. This made him very angry, and his blood pressure shot up. His blood pressure, he states, was 230/ , and he became very short of breath and he also had nosebleeds. He called me so I asked him to come to the emergency room. He also states that recently his blood sugars have been high. The patient denies any noncompliance with medication or diet or salt or fluids. He also states that he has headaches in the back of the head which are severe. There are no TIA or CVA symptoms. The patient denies any PND or orthopnea, but he has dyspnea on exertion. There is no leg edema. PAST MEDICAL HISTORY: The patient has a history of hypertension which has been difficult to control since the last 15 years. Recently, his blood pressure has been axillary/malignant, and hence the patient started having shortness of breath due to that. He also has history of ____ which showed normal . The patient in 09/2015 had an echocardiogram which showed an EF of 25%. Subsequently, he had this repeated and his EF was still low, and he was sent to for cardiac catheterization which showed no coronary artery disease. I spoke with the patient multiple times about sending the patient to [place] or [place] for evaluation for cardiac transplantation; he has refused it. He also did not want an AICD. There is no history of palpitations, cardiac arrhythmias, or syncope. There is no PND, orthopnea, or leg edema. He has a history of diabetes mellitus type 2, noninsulin dependent which has been also difficult to control. He has no history of asthma or COPD. He has a documented sleep study in the past suggesting obstructive sleep apnea but did not have CPAP. In 09/2015, we gave him a loan of CPAP. He states that he has been using that. He has no history of HI. He had a Cardiolite stress test on 10/09/2015 which was negative for ischemia or HI. He has history of anxiety but no depression. He has no history of thyroid disease. There is no history of chronic kidney disease. There is no history of GI bleed. The patient also has history of anxiety but is treated with medications. REVIEW OF SYSTEMS: CONSTITUTIONAL: Denies any fever, chills, or rigors, but last 4 days he had been feeling weak and fatigued. HEAD: Complains of pain in the back of his head since his blood pressure has been up. EYES: There is no history of diplopia. No history of amblyopia. He has a history of left corneal transplant and takes drug for that. There are no visual problems. There is no amblyopia or diplopia. There is no history of amaurosis fugax. EARS: No history of hearing loss. No history of tinnitus. No history of recurrent ear infections. NOSE: No history of hay fever. No history of rhinorrhea. No history of nosebleeds. MOUTH: No history of altered taste sensation, no history of ulcers in the mouth, and no bleeding from the gums. THROAT: There is no odynophagia or dysphagia. There is no history of recurrent sore throats. SKIN: There is no psoriasis. There is no skin cancer. There is pruritus. There is no yellowish discoloration of skin. NECK: No enlarged neck lymph nodes. No painful swelling in the neck in the past, but recently with the pain in the back of the head, he is also having pain in the back of the neck. He has no symptoms of C-spine arthritis. There is no goiter. LUNGS: No history of asthma or COPD. No history of wheezing. No history of cough or sputum production. No history of pulmonary embolism. No history of pleuritis. No history of hemoptysis. No symptoms suggestive of pneumonia. He has a history of obstructive sleep apnea and the CPAP. He has no history of COPD or asthma. CARDIAC: There is no history of HI or anginal symptoms. He has normal . He has nonischemic cardiomyopathy, and the ejection fraction is severely reduced. He has a history of hypertension which is difficult to control. At this time, his blood pressure was high. He has shortness of breath and fatigue. He also has had nosebleeds. When he came to the emergency room, his initial blood pressure, the patient states, was 230/114. There is no history of cardiac arrhythmia. No history of syncope. No recent leg edema. He has been compliant with his diet and salt intake and fluid intake. GASTROINTESTINAL: No history of . No history of GI bleed. No history of jaundice. No history of fatty food intolerance. No history of abdominal pain. No history of cirrhosis. ENDOCRINE: History of diabetes mellitus type 2, noninsulin dependent. Just recently, his blood sugars have been high. No history of thyroid disease. No history of polydipsia or polyuria. No history of heat or cold intolerance. MUSCULOSKELETAL: Denies arthritis or collagen vascular disease. CENTRAL NERVOUS SYSTEM: No history of TIA or CVA. No history of gait imbalance. No history of seizures, headaches, or migraines. RENAL: No history of chronic kidney disease. No symptoms of enlarged prostate. No history of hematuria, pyuria, or dysuria. PSYCHIATRIC: The patient does have a history of anxiety but no depression. There is no history of suicidal ideation. VASCULAR: No history of calf or buttock claudication. No history of DVT. HEMATOLOGICAL: No history of bleeding diathesis. No history of clotting disorders. ALLERGIES: He is allergic to SHRIMP AND LENORA INHIBITORS. FAMILY HISTORY: Positive for hypertension, diabetes mellitus. He has 3 brothers; all have hypertension and one has diabetes mellitus. Mother has asthma, and his maternal myocardial infarction. His father had hypertension and diabetes mellitus. The patient is a FULL CODE. His is his surrogate healthcare decision maker. MEDICATIONS: 1. Tylenol 650 mg p.o. q.4 hours p.r.n. 2. Aspirin 325 mg p.o. x1 now. 3. He is on atorvastatin 20 mg p.o. nightly. 4. He is on hypoglycemic precautions with glucose 40% gel 15 g p.o. and 30 g p.o. respectively p.r.n. hypoglycemia. 5. He is on dextrose 50% 12.5 g IV and 25 g IV p.r.n. hypoglycemia. 6. He is on Lasix 40 mg p.o. b.i.d. 7. He is on glucagon 1 mg IM p.r.n. hypoglycemia. 8. He is on Accu-Chek a.c. and at bedtime with sliding scale insulin. 9. He is on ipratropium/albuterol 3 mL nebulizer treatment q.6 hours p.r.n. 10. He is on labetalol 20 mg IV q.6 hours p.r.n. 11. He is on morphine 8 mg IV x1, and he is on morphine 2 mg IV q.4 hours p.r.n. 12. He used to be amlodipine 5 mg p.o. q.6 hours and also hydralazine 50 mg p.o. nightly. PHYSICAL EXAMINATION: VITAL SIGNS: On examination when I saw him around 11:00, he was afebrile with a blood pressure of 183/117, pulse was 74 beats per minute, respirations 20 beats per minute, and his O2 saturations were 92.2% on room air. GENERAL: On examination, the patient is morbidly obese but well groomed. At present, slightly anxious. HEAD: Atraumatic, normocephalic. EYES: Pupils are equal, round, regular, reactive to light and accommodation. There is no conjunctival pallor. There is no scleral icterus. EARS: Tympanic membranes are intact. External auditory canals are clear. There are no lesions on the pinna. NOSE: There is no deviated nasal septum. There is no inflammation of the nasal mucous membranes. MOUTH: Mucous membranes of the mouth are moist. Tongue is moist. There are no ulcers. There is no bleeding from the gums. THROAT: There is no redness of the oropharynx. There is no exudate. SKIN: There are no skin rashes. There is no petechia or ecchymosis. No skin lesions. NECK: Supple. There is no JVD. Carotids are equal. There is no bruit. There is no lymphadenopathy. There is no goiter. LUNGS: Clear to auscultation and percussion. There is no chest wall tenderness. HEART: S1, S2 heard. There is an S4 gallop present. There is no S3 gallop. There is a systolic murmur in the left sternal border and the apex. There is no rub. ABDOMEN: Soft, obese, nontender. There is no hepatosplenomegaly. Bowel sounds are well heard. EXTREMITIES: Femorals are slightly diminished. There are no femoral bruits. Leg pulses are slightly diminished. There is no cyanosis or clubbing. There is no pedal edema. There is no calf tenderness. CENTRAL NERVOUS SYSTEM: The patient is conscious, awake, alert, oriented x3 with no focal deficit. PSYCHIATRIC: The patient does appear to be slightly anxious but does not appear to be agitated. DIAGNOSTIC DATA: His chest x-ray shows cardiomegaly without and no infiltrates. His EKG shows sinus rhythm, 1st-degree AV block, left atrial abnormality, nonspecific ICD . The patient's white count is 7300, hemoglobin is 13.3, hematocrit is 40.3, platelet count is 156,000. The patient's sodium is 140.7, potassium 4.3, chloride 103, CO2 is 24. The patient's BUN is 14, creatinine is 0.76, GFR is greater than 60. His glucose is 162. His liver function tests are normal. His initial troponin I was elevated at 0.134 and subsequently has come down to 0.096. His total protein is 7.4, albumin is 4.1. IMPRESSION: 1. Axillary/malignant hypertension. 2. Elevated troponin I, most likely secondary to the patient's cardiomyopathy and severely elevated blood pressure. 3. Nonischemic dilated cardiomyopathy with severely reduced LV ejection fraction. 4. Diabetes mellitus, not well controlled, type 2. 5. Hypertension. 6. Sleep apnea. Patient now on CPAP. RECOMMENDATIONS: Will hold the patient's amlodipine, continue the patient's hydralazine, and start the patient on a Cardene drip to control the patient's blood pressure. This was discussed with the hospitalist. The patient will be transferred to the ICU drip. Will start at 2.5 mg/hour and increase to 5 mg/hour since we need to control the patient's blood pressure. I saw the patient in the ICU, his blood pressure was still up and it was 170/98, and hence, we increased the drip to 5 mg Cardene per hour infusion. Note the patient was seen at 11 a.m. and later on at 8 p.m. Total time spent with the patient was 50 minutes. Note in spite of my repeated recommendations, the patient does not want to go to [place] or [place] for evaluation for heart transplantation. Also, he does not want an AICD. His medications were reviewed and adjusted as mentioned earlier. The patient is a FULL CODE. His is his surrogate healthcare decision marker. Note this involved highly complex medical decision making in view of the patient's elevated troponin I and patient's chest pressure and shortness of breath and axillary/malignant hypertension. Dr. Jose will follow the patient in the a.m. discussed with the hospitalist also and the other involved in the case. DICTATING PHYSICIAN: SANJEEV MCDONOUGH M.D. [id number] PHY#: [id number] ID: [id number] JOB#: [id number] ACCT: [id number] cc:SANJEEV MCDONOUGH M.D. >
== END 2017-04-04 15:15 | disposition home or self-care (01) ==
LOC: ER 09:32 → EH 11:56 → ICU 19:00
PROVIDERS: ADMIT Emergency Medicine; ATTEND Emergency Medicine
PROC: 5A09357 Assistance with Respiratory Ventilation, Less than 24 Consecutive Hours, Continuous Positive Airway Pressure (ICD-10-PCS; principal; 2017-04-04)
DX: I16.1 Hypertensive emergency (principal); I11.0 Hypertensive heart disease with heart failure; I50.23 Acute on chronic systolic (congestive) heart failure; R07.89 Other chest pain; E11.8 Type 2 diabetes mellitus with unspecified complications; G47.33 Obstructive sleep apnea (adult) (pediatric); R74.8 Abnormal levels of other serum enzymes; I42.0 Dilated cardiomyopathy; M54.2 Cervicalgia; Z79.899 Other long term (current) drug therapy; R04.0 Epistaxis; E66.01 Morbid (severe) obesity due to excess calories; R10.9 Unspecified abdominal pain; R19.7 Diarrhea, unspecified; Z94.7 Corneal transplant status; Z82.49 Family history of ischemic heart disease and other diseases of the circulatory system; Z68.34 Body mass index [BMI] 34.0-34.9, adult
CPT/HCPCS: 93005; 99291; 96375; 96365; 96366; 36415 ×2; 82962 ×2; 83735; 85025; 85027; 80048; 80053; 84484 ×2; 71020; 93010; 94660; G0378 ×3; J3490 ×3; J2270 ×2; J1815 ×2

== ENCOUNTER 2017-04-14 10:16 | Emergency (ER) | payer BC ==
--- NOTE | 2017-04-14 11:13 | ER Document Report ---
ED Medical Screen (RME) - General Mode of Arrival: Wheelchair Information source: Patient TRAVEL OUTSIDE OF THE [place] IN LAST 30 DAYS: No - HPI Patient complains to provider of: Left chest pain Onset: Other - yesterday morning Associated Symptoms: Other - see notes above <ALEXSANDRA NOVAK - Last Filed: 04/14/17 11:26> <HAYLEYNESS - Last Filed: 04/14/17 21:04> - General Chief Complaint: Chest Pain Stated Complaint: CHEST PAIN Time Seen by Provider: 04/14/17 10:54 Notes: 46 year old male with history of hypertension and CHF presents to the ED complaining of substernal chest pain that radiates to the left chest and flank which started yesterday morning. Patient describes the pain as constant, sharp, and cramping and is exacerbated with deep breathing. Patient denies having this kind of pain in the past. Patient was woken up secondary to the pain. Patient was admitted in the hospital [address] Garcia. (ALEXSANDRA NOVAK) - Related Data Allergies/Adverse Reactions: shellfish derived Allergy (Severe, Verified 04/14/17 10:19) Swelling of Throat lisinopril Allergy (Intermediate, Verified 04/14/17 10:19) angioedema Past Medical History - General Information source: Patient - Social History Frequency of alcohol use: None Drug Abuse: None Family history: Reviewed & Not Pertinent - Past Medical History Cardiac Medical History: Reports: Hx Congestive Heart Failure, Hx Hypertension Endocrine Medical History: Reports: Hx Diabetes Mellitus Type 2 Renal/ Medical History: Denies: Hx Peritoneal Dialysis Past Surgical History: Reports: Hx Orthopedic Surgery - bilateral knee, left wrist - Immunizations Hx Diphtheria, Pertussis, Tetanus Vaccination: Yes History of Influenza Vaccine for 02/2017 - 07/2017 Season: Yes Influenza Administration Date for 02/2017 - 07/2017 Season: 02/22/17 <ALEXSANDRA NOVAK - Last Filed: 04/14/17 11:26> Review of Systems - Review of Systems Constitutional: No symptoms reported EENT: No symptoms reported Cardiovascular: See HPI, Chest pain - left side that radiates to left flank Respiratory: No symptoms reported Gastrointestinal: No symptoms reported Genitourinary: No symptoms reported Male Genitourinary: No symptoms reported Musculoskeletal: No symptoms reported Skin: No symptoms reported Hematologic/Lymphatic: No symptoms reported Neurological/Psychological: No symptoms reported -: Yes All other systems reviewed and negative <ALEXSANDRA NOVAK - Last Filed: 04/14/17 11:26> Physical Exam - General General appearance: Alert In distress: None - Respiratory Respiratory status: No respiratory distress Breath sounds: Normal - Cardiovascular Rhythm: Regular Heart sounds: Normal auscultation Murmur: No Pulses: Normal: Radial - Psychological Associated symptoms: Normal affect, Normal mood <ALEXSANDRA NOVKA - Last Filed: 04/14/17 11:26> - Vital signs Vitals: Temp Pulse Resp BP Pulse Ox 97.6 F 81 16 183/118 H 96 04/14/17 10:31 04/14/17 10:31 04/14/17 10:31 04/14/17 10:31 04/14/17 10:31 Course <ALEXSANDRA NOVAK - Last Filed: 04/14/17 11:26> - Laboratory Result Diagrams: 04/14/17 11:35 04/14/17 11:35 <NESS HARDY - Last Filed: 04/14/17 21:04> - Re-evaluation Re-evalutation: 04/14/17 21:04 I personally performed the services described in the documentation, reviewed and edited the documentation which was dictated to the scribe in my presence, and it accurately records my words and actions. (NESS HARDY) - Vital Signs Vital signs: Temp Pulse Resp BP Pulse Ox 97.6 F 81 17 142/85 H 97 04/14/17 10:31 04/14/17 10:31 04/14/17 16:46 04/14/17 16:46 04/14/17 16:46 - Laboratory Laboratory results interpreted by me: 04/14/17 04/14/17 04/14/17 11:35 11:35 14:35 MCV 79 L MCH 25.6 L RDW 14.8 H Glucose 236 H Calcium 11.2 H Urine Protein 30 H Urine Glucose (UA) >=500 H Doctor's Discharge <ALEXSANDRA NOVAK - Last Filed: 04/14/17 11:26> <NESS HARDY - Last Filed: 04/14/17 21:04> - Discharge Clinical Impression: Chest pain, Hypertension, Uncontrolled diabetes mellitus Condition: Stable Disposition: HOME, SELF-CARE Instructions: Chest Pain of Unclear Cause ([facility]), High Blood Pressure ([facility]) Referrals: SANJEEV MCDONOUGH MD [ACTIVE STAFF] - Follow up as needed (All the office Monday for an appointment. Return to the emergency department if any concerns) Scribe Documentation - Scribe Written by Scribe:: Jese Parmar, 04/14/2017 1150 acting as scribe for :: Long <ALEXSANDRA NOVAK - Last Filed: 04/14/17 11:26>
[2017-04-14 11:51] LABS: ABSOLUTE EOSINOPHILS # (AUTO) 0.1 10^3/uL (0.0-0.6); ABSOLUTE LYMPHOCYTES (AUTO) 1.6 10^3/uL (0.5-4.7); ABSOLUTE MONOCYTES (AUTO) 0.6 10^3/uL (0.1-1.4); ABSOLUTE NEUT (AUTO) 4.7 10^3/uL (1.7-8.2); BASOPHILS % (AUTO) 0.6 % (0-2); EOSINOPHILS % (AUTO) 1.5 % (0-6); HEMATOCRIT 41.6 % (37.9-51.0); HEMOGLOBIN 13.5 g/dL (13.5-17.0); HGB HCT DIFFERENCE -1.1; LYMPHOCYTES % (AUTO) 22.9 % (13-45); MEAN CORPUSCULAR HEMOGLOBIN 25.6 pg (27.0-33.4); MEAN CORPUSCULAR HGB CONC 32.5 g/dL (32.0-36.0); MEAN CORPUSCULAR VOLUME 79 fl (80-97); MONOCYTES % (AUTO) 8.9 % (3-13); RED BLOOD COUNT 5.29 10^6/uL (4.35-5.55); RED CELL DISTRIBUTION WIDTH 14.8 % (11.5-14.0); SEGMENTED NEUTROPHILS % (AUTO) 66.1 % (42-78); WHITE BLOOD COUNT 7.1 10^3/uL (4.0-10.5)
[2017-04-14 12:11] LABS: ALANINE AMINOTRANSFERASE 49 U/L (21-72); ALBUMIN 4.4 g/dL (3.5-5.0); ALKALINE PHOSPHATASE 100 U/L (38-126); ANION GAP 13 (5-19); ASPARTATE AMINO TRANSFERASE 22 U/L (17-59); BILIRUBIN,DIRECT 0.3 mg/dL (0.0-0.4); BILIRUBIN,TOTAL 0.5 mg/dL (0.2-1.3); BLOOD UREA NITROGEN 11 mg/dL (7-20); CALCIUM 11.2 mg/dL (8.4-10.2); CARBON DIOXIDE 29 mmol/L (22-30); CHLORIDE 99 mmol/L (98-107); CREATININE RESULT 0.71 mg/dL (0.52-1.25); GLUCOSE 236 mg/dL (75-110); LIPASE 92.9 U/L (23-300); MAGNESIUM 1.8 mg/dL (1.6-2.3); POTASSIUM 3.8 mmol/L (3.6-5.0); SODIUM 140.5 mmol/L (137-145); TOTAL PROTEIN 7.6 g/dL (6.3-8.2)
--- NOTE | 2017-04-14 12:20 | RADIOLOGY REPORT (SQ) ---
EXAM DESCRIPTION: CHEST SINGLE VIEW COMPLETED DATE/TIME: 04/14/2017 12:11 pm REASON FOR STUDY: chest pain COMPARISON: 04/03/2017. NUMBER OF VIEWS: One view. TECHNIQUE: Single frontal radiographic view of the chest acquired. LIMITATIONS: None. FINDINGS: LUNGS AND PLEURA: No opacities, masses or pneumothorax. No pleural effusion. MEDIASTINUM AND HILAR STRUCTURES: No masses. Contour normal. HEART AND VASCULAR STRUCTURES: Heart enlarged without failure. Normal vasculature. BONES: No acute findings. HARDWARE: None in the chest. OTHER: No other significant finding. IMPRESSION: STABLE CARDIOMEGALY. NO ACUTE FINDINGS. TECHNICAL DOCUMENTATION: JOB ID: [id number] [employer]- All Rights Reserved
[2017-04-14] MEDS ORDERED: LABETALOL HCL INJ 20 MG/4 ML DISP.SYRIN IV ONE (12:52)
--- NOTE | 2017-04-14 13:01 | ER Document Report ---
ED Cardiac - General Chief Complaint: Chest Pain Stated Complaint: CHEST PAIN Time Seen by Provider: 04/14/17 10:45 Mode of Arrival: Wheelchair Information source: Patient TRAVEL OUTSIDE OF THE [place] IN LAST 30 DAYS: No - HPI Patient complains to provider of: Chest pain Was the onset of pain: Sudden Is the pain a: New problem Chest pain location: Substernal Quality of pain: Constant, Sharp Severity now: Moderate Severity at worst: Moderate Cardiac risk factors: Hypertension, Hx CHF Associated symptoms: Nausea/vomiting Exacerbated by: Denies Relieved by: Nothing Similar symptoms previously: Yes Recently seen / treated by doctor: Yes - last by dr. BustosptMaricarmen's ship washer for check up - Related Data Allergies/Adverse Reactions: shellfish derived Allergy (Severe, Verified 04/14/17 10:19) Swelling of Throat lisinopril Allergy (Intermediate, Verified 04/14/17 10:19) angioedema Past Medical History - General Information source: Patient - Social History Smoking Status: Never Smoker Frequency of alcohol use: None Drug Abuse: None Family History: DM, Hypertension Patient has suicidal ideation: No Patient has homicidal ideation: No - Past Medical History Cardiac Medical History: Reports: Hx Congestive Heart Failure, Hx Hypertension Neurological Medical History: Reports: None Endocrine Medical History: Reports: Hx Diabetes Mellitus Type 2 Renal/ Medical History: Reports: None. Denies: Hx Peritoneal Dialysis Malignancy Medical History: Reports None GI Medical History: Reports: None Musculoskeltal Medical History: Reports None Psychiatric Medical History: Reports: None Traumatic Medical History: Reports: None Surgical Hx: Other - She had a left corneal transplant as well as bilateral arthroscopic knee surgery Past Surgical History: Reports: Hx Orthopedic Surgery - bilateral knee, left wrist - Immunizations Hx Diphtheria, Pertussis, Tetanus Vaccination: Yes Review of Systems - Review of Systems Constitutional: No symptoms reported EENT: No symptoms reported, Other Cardiovascular: See HPI Respiratory: No symptoms reported Gastrointestinal: See HPI Genitourinary: No symptoms reported Musculoskeletal: No symptoms reported Skin: No symptoms reported Hematologic/Lymphatic: No symptoms reported Neurological/Psychological: No symptoms reported Physical Exam - Vital signs Vitals: Temp Pulse Resp BP Pulse Ox 97.6 F 81 16 183/118 H 96 04/14/17 10:31 04/14/17 10:31 04/14/17 10:31 04/14/17 10:31 04/14/17 10:31 Interpretation: Hypertensive - Notes Notes: PHYSICAL EXAMINATION: GENERAL: Well-appearing, well-nourished and in no acute distress. HEAD: Atraumatic, normocephalic. EYES: Pupils equal round and reactive to light, extraocular movements intact, sclera anicteric, conjunctiva are normal. ENT: Nares patent, oropharynx clear without exudates. Moist mucous membranes. NECK: Normal range of motion, supple without lymphadenopathy LUNGS: Breath sounds clear to auscultation bilaterally and equal. No wheezes rales or rhonchi. HEART: Regular rate and rhythm without murmurs ABDOMEN: Soft, nontender, nondistended abdomen. No guarding, no rebound. No masses appreciated. Musculoskeletal: Normal range of motion, no pitting or edema. No cyanosis. NEUROLOGICAL: Cranial nerves grossly intact. Normal speech, normal gait. Normal sensory, motor exams PSYCH: Normal mood, normal affect. SKIN: Warm, Dry, normal turgor, no rashes or lesions noted. Course - Re-evaluation Re-evalutation: 04/14/17 16:48 His blood pressure came down nicely. He is chest pain free. Troponin is down trending. I did talk to Dr. Mcdonough ship washer who stated that the patient had a cardiac cath which showed clean coronaries. He states discharge the patient to home and have him follow-up on Monday. Patient was told to call the office Monday for an appointment with his ship washer. He was told to return to the emergency department if he has any further concerns. 04/14/17 16:51 Discussed with the patient that his Ryder was mildly elevated today. I recommended him following a low sugar low carbohydrate diet. Patient verbalized understanding. - Vital Signs Vital signs: Temp Pulse Resp BP Pulse Ox 97.6 F 81 17 142/85 H 97 04/14/17 10:31 04/14/17 10:31 04/14/17 16:46 04/14/17 16:46 04/14/17 16:46 - Laboratory Result Diagrams: 04/14/17 11:35 04/14/17 11:35 Laboratory results interpreted by me: 04/14/17 04/14/17 04/14/17 11:35 11:35 14:35 MCV 79 L MCH 25.6 L RDW 14.8 H Glucose 236 H Calcium 11.2 H Urine Protein 30 H Urine Glucose (UA) >=500 H - EKG Interpretation by Me EKG shows normal: Sinus rhythm Rate: Normal Rhythm: NSR Discharge - Discharge Clinical Impression: Chest pain, Hypertension, Uncontrolled diabetes mellitus Condition: Stable Instructions: Chest Pain of Unclear Cause ([facility]), High Blood Pressure ([facility]) Referrals: SANJEEV MCDONOUGH MD [ACTIVE STAFF] - Follow up as needed (All the office Monday for an appointment. Return to the emergency department if any concerns)
--- NOTE | 2017-04-14 13:11 | EKG REPORT ---
SEVERITY:- ABNORMAL ECG - SINUS RHYTHM FIRST DEGREE AV BLOCK LEFT ATRIAL ABNORMALITY LEFT VENTRICULAR HYPERTROPHY : Confirmed by: Roberto Bonilla MD 14-Apr-2017 13:11:13
[2017-04-14 15:16] LABS: APPEARANCE,URINE CLEAR; BILIRUBIN,URINE NEGATIVE (NEGATIVE); GLUCOSE, URINE >=500 mg/dL (NEGATIVE); KETONES,URINE NEGATIVE (NEGATIVE); LEUKOCYTE ESTERASE,URINE NEGATIVE (NEGATIVE); NITRITE,URINE NEGATIVE (NEGATIVE); PROTEIN,URINE 30 mg/dL (NEGATIVE); URINE SPECIFIC GRAVITY 1.028; UROBILINOGEN,URINE NEGATIVE mg/dL (<2.0)
[2017-04-14 15:21] LABS: WBC,URINE 0-1 /HPF
[2017-04-14 16:47] VITALS: BP 142/85
== END 2017-04-14 16:56 | disposition home or self-care (01) ==
LOC: ER 10:16
DX: R07.9 Chest pain, unspecified (principal); E11.65 Type 2 diabetes mellitus with hyperglycemia; I10 Essential (primary) hypertension; Z91.013 Allergy to seafood; Z88.8 Allergy status to other drugs, medicaments and biological substances
CPT/HCPCS: 93005; 99285; 96374; 36415; 83690; 83735; 85025; 80053; 81001; 84484; 71010; 93010; J3490

== ENCOUNTER 2017-09-17 16:01 | Emergency (ER) | payer BC, OTHER ==
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
[2017-09-17] MEDS ORDERED: ACETAMINOPHEN 325 MG TABLET PO ONE (16:42)
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
[2017-09-17 18:59] VITALS: BP 176/94
== END 2017-09-17 18:50 | disposition home or self-care (01) ==
LOC: ER 16:01
DX: M46.92 Unspecified inflammatory spondylopathy, cervical region (principal); M25.511 Pain in right shoulder; M54.6 Pain in thoracic spine; M54.5 Low back pain; V89.2XXA Person injured in unspecified motor-vehicle accident, traffic, initial encounter; I50.9 Heart failure, unspecified; I11.0 Hypertensive heart disease with heart failure; E11.9 Type 2 diabetes mellitus without complications
CPT/HCPCS: 72070; 72110; 72125; 99284

== ENCOUNTER 2017-10-19 11:29 | Observation (INO) | payer BC, OTHER ==
--- NOTE | 2017-10-19 11:41 | EKG REPORT ---
SEVERITY:- ABNORMAL ECG - SINUS RHYTHM LEFT ATRIAL ABNORMALITY NONSPECIFIC INTRAVENTRICULAR CONDUCTION DELAY LEFT VENTRICULAR HYPERTROPHY : Confirmed by: Mariana Montano MD 19-Oct-2017 11:40:37
[2017-10-19] MEDS ORDERED: ASPIRIN 81 MG TABLET, CHEWABLE PO ONE (11:45)
[2017-10-19 12:08] LABS: ABSOLUTE EOSINOPHILS # (AUTO) 0.1 10^3/uL (0.0-0.6); ABSOLUTE LYMPHOCYTES (AUTO) 1.4 10^3/uL (0.5-4.7); ABSOLUTE MONOCYTES (AUTO) 0.8 10^3/uL (0.1-1.4); ABSOLUTE NEUT (AUTO) 5.6 10^3/uL (1.7-8.2); BASOPHILS % (AUTO) 0.4 % (0-2); EOSINOPHILS % (AUTO) 1.1 % (0-6); HEMATOCRIT 31.6 % (37.9-51.0); HEMOGLOBIN 10.1 g/dL (13.5-17.0); LYMPHOCYTES % (AUTO) 17.8 % (13-45); MEAN CORPUSCULAR HGB CONC 31.9 g/dL (32.0-36.0); MEAN CORPUSCULAR VOLUME 78 fl (80-97); PLATELET COUNT 220 10^3/uL (150-450); RED BLOOD COUNT 4.04 10^6/uL (4.35-5.55); RED CELL DISTRIBUTION WIDTH 15.1 % (11.5-14.0); SEGMENTED NEUTROPHILS % (AUTO) 70.7 % (42-78); TOTAL CELLS COUNTED % (AUTO) 100 %; WHITE BLOOD COUNT 7.9 10^3/uL (4.0-10.5)
[2017-10-19 12:28] LABS: ALANINE AMINOTRANSFERASE 34 U/L (21-72); ALBUMIN 3.9 g/dL (3.5-5.0); ALKALINE PHOSPHATASE 85 U/L (38-126); ANION GAP 13 (5-19); ASPARTATE AMINO TRANSFERASE 24 U/L (17-59); BILIRUBIN,DIRECT 0.2 mg/dL (0.0-0.4); BILIRUBIN,TOTAL 0.3 mg/dL (0.2-1.3); BLOOD UREA NITROGEN 13 mg/dL (7-20); CALCIUM 10.6 mg/dL (8.4-10.2); CARBON DIOXIDE 27 mmol/L (22-30); CHLORIDE 101 mmol/L (98-107); CREATINE KINASE 225 U/L (55-170); GLUCOSE 345 mg/dL (75-110); POTASSIUM 3.8 mmol/L (3.6-5.0); SODIUM 140.6 mmol/L (137-145); TOTAL PROTEIN 6.9 g/dL (6.3-8.2)
--- NOTE | 2017-10-19 12:32 | RADIOLOGY REPORT (SQ) ---
EXAM DESCRIPTION: CHEST SINGLE VIEW COMPLETED DATE/TIME: 10/19/2017 12:19 pm REASON FOR STUDY: bed t1 cp COMPARISON: April 2017 EXAM PARAMETERS: NUMBER OF VIEWS: One view. TECHNIQUE: Single frontal radiographic view of the chest acquired. RADIATION DOSE: NA LIMITATIONS: None. FINDINGS: LUNGS AND PLEURA: No opacities, masses or pneumothorax. No pleural effusion. MEDIASTINUM AND HILAR STRUCTURES: No masses. Contour normal. HEART AND VASCULAR STRUCTURES: Cardiac silhouette remains enlarged and is unchanged in configuration. BONES: No acute findings. HARDWARE: None in the chest. OTHER: No other significant finding. IMPRESSION: No significant interval change. Cardiomegaly. No acute consolidations are identified. Other findings as noted above TECHNICAL DOCUMENTATION: JOB ID: [id number] [employer]- All Rights Reserved Reading location - IP/workstation name: [email or web address]
[2017-10-19 12:40] LABS: CREATINE KINASE MB 3.82 ng/mL (<4.55)
[2017-10-19] MEDS ORDERED: NORMAL SALINE 1000 ML 500 ML IV ONE (12:40)
[2017-10-19] MEDS ORDERED: INSULIN REG, HUMAN 100 UNIT/ML 3 ML VIAL (PYX) IV ONE (12:41)
[2017-10-19 12:45] LABS: TROPONIN I 0.075 ng/mL
--- NOTE | 2017-10-19 12:50 | ER Document Report ---
ED Cardiac - General Chief Complaint: Chest Pain Stated Complaint: CHEST PAIN Time Seen by Provider: 10/19/17 12:00 Information source: Patient Notes: Patient is a 47-year-old male with past medical history as recorded who presents the emergency department after the tractor trailer truck driver routine office visit secondary to multiple complaints. Patient states for 3 days he has had some intermittent left-sided chest discomfort. He states mild shortness of breath. He denies any fevers or cough. He denies any calf pain or leg swelling above baseline. Patient has a history of cardiomyopathy and is followed by the tractor trailer truck driver here with some congestive heart failure. He also has a history of diabetes and high blood pressure on the medications as listed. Patient states for the last 4 days he has had "food poisoning" causing some vomiting and diarrhea. He denies any blood in the vomit or diarrhea. He denies any abdominal pain or fevers. He states he had 3 bouts of diarrhea yesterday and one bout of vomiting. TRAVEL OUTSIDE OF THE [place] IN LAST 30 DAYS: No - HPI Patient complains to provider of: Other - See above Was the onset of pain: Gradual Chest pain location: Under breast Quality of pain: Mild, Dull Chest pain radiation location: None Severity now: None Severity at worst: Mild Pain level currently: Denies Cardiac risk factors: Hypertension, Hx CHF Associated symptoms: Other - See above Exacerbated by: Denies Relieved by: Nothing Similar symptoms previously: Yes Recently seen / treated by doctor: Yes - Related Data Allergies/Adverse Reactions: shellfish derived Allergy (Severe, Verified 10/19/17 11:30) Swelling of Throat lisinopril Allergy (Intermediate, Verified 10/19/17 11:30) angioedema Past Medical History - General Information source: Patient - Social History Smoking Status: Unknown if Ever Smoked Cigarette use (# per day): No Chew tobacco use (# tins/day): No Smoking Education Provided: No Frequency of alcohol use: None Drug Abuse: None Family History: DM, Hypertension - Past Medical History Cardiac Medical History: Reports: Hx Congestive Heart Failure, Hx Hypertension Endocrine Medical History: Reports: Hx Diabetes Mellitus Type 2 Renal/ Medical History: Denies: Hx Peritoneal Dialysis Past Surgical History: Reports: Hx Orthopedic Surgery - bilateral knee, left wrist - Immunizations Hx Diphtheria, Pertussis, Tetanus Vaccination: Yes Review of Systems - Review of Systems Constitutional: denies: Fever EENT: denies: Eye discharge, Nose discharge Cardiovascular: denies: Palpitations Respiratory: denies: Short of breath Gastrointestinal: Diarrhea, Nausea, Vomiting Genitourinary: denies: Dysuria Musculoskeletal: denies: Leg swelling Skin: Other - no hives. denies: Rash Neurological/Psychological: Other - no slurred speech -: Yes All other systems reviewed and negative Physical Exam - Vital signs Vitals: Temp Pulse Resp BP Pulse Ox 98.3 F 97 14 168/95 H 98 10/19/17 11:40 10/19/17 11:40 10/19/17 11:40 10/19/17 11:40 10/19/17 11:40 Notes: Reviewed vital signs and nursing note as charted by RN. CONSTITUTIONAL: Alert and oriented and responds appropriately to questions. Well -appearing; well-nourished HEAD: Normocephalic; atraumatic EYES: PERRL; Sclerae non-icteric ENT: Normal nose; no rhinorrhea; moist mucous membranes; pharynx without lesions noted NECK: Supple without meningismus; non-tender CARD: Regular rate and rhythm; no murmurs RESP: Normal chest excursion without splinting or tachypnea; breath sounds clear and equal bilaterally ABD/GI: Normal bowel sounds; non-distended; soft, non-tender to deep palpation of all 4 quadrants of the abdomen BACK: The back appears normal and is non-tender to palpation, there is no CVA tenderness EXT: Normal ROM in all joints; non-tender to palpation; minimal 1+ bilateral edema to the lower anterior shins SKIN: Normal color for age and race; warm; no acute lesions noted NEURO: Moves all extremities equally; Motor and sensory function intact PSYCH: The patient's mood and manner are appropriate. Grooming and personal hygiene are appropriate. Course - Re-evaluation Re-evalutation: Given the above history and physical examination we will obtain basic labs, troponin, x-ray of the chest, EKG, and reassess. I have called Dr. Garcia the patient's tractor trailer truck driver to see if the patient has any recent invasive cardiac testing. The elevated glucose with "food poisoning" with vomiting and diarrhea with no recent trips, travel, or recent antibiotics, I will provide a short course of fluids as well as an Accu-Chek every hour with some insulin. Chest x-ray stable cardiomegaly, normal mediastinum, no fractures, normal lung brown, no pneumothorax. EKG shows a heart rate of 94, normal sinus rhythm, left axis deviation, LVH, no ST elevation or depression. Old EKG from April 2017 shows no obvious appreciable change 10/19/17 13:16 Labs as recorded. CP has improved. Pt will be admitted for observation. Pt's tractor trailer truck driver has been notified. - Vital Signs Vital signs: Temp Pulse Resp BP Pulse Ox 98.3 F 97 24 H 148/94 H 97 10/19/17 11:40 10/19/17 11:40 10/19/17 12:01 10/19/17 12:00 10/19/17 12:01 - Laboratory Result Diagrams: 10/19/17 11:45 10/19/17 11:45 Laboratory results interpreted by me: 10/19/17 10/19/17 11:45 11:45 RBC 4.04 L Hgb 10.1 L Hct 31.6 L MCV 78 L MCH 25.0 L MCHC 31.9 L RDW 15.1 H Glucose 345 H Calcium 10.6 H Creatine Kinase 225 H Discharge - Discharge Clinical Impression: Chest pain Qualifiers: Chest pain type: unspecified Qualified Code(s): R07.9 - Chest pain, unspecified Condition: Fair Disposition: ADMITTED OBSERVATION Admitting Provider: Hospitalist Unit Admitted: Telemetry
[2017-10-19 13:39] LABS: VENOUS BLOOD BASE EXCESS 1.8 mmol/L; VENOUS BLOOD HCO3 26.8 mmol/L (20-32); VENOUS BLOOD PCO2 43.5 mmHg (35-63); VENOUS BLOOD PH 7.41 (7.30-7.42)
[2017-10-19] MEDS ORDERED: NITROGLYCERIN 0.4 MG/TAB 25 TAB/BOTTLE SL PRN (14:12)
[2017-10-19] MEDS ORDERED: MAG HYDROX/AL HYDROX/SIMETH SUSP 30 ML UDCUP PO PRN (14:12)
[2017-10-19] MEDS ORDERED: ONDANSETRON HCL INJ/PF 4 MG/2 ML SDV IV PRN (14:12)
[2017-10-19] MEDS ORDERED: DEXTROSE 40% GEL 15 GM TUBE PO PRN ×2 (14:18)
[2017-10-19] MEDS ORDERED: GLUCAGON,HUMAN RECOMB 1 MG INJ IM PRN (14:18)
[2017-10-19] MEDS ORDERED: DEXTROSE 50%-WATER 25 GM/50 ML DISP.SYRIN IV PRN ×2 (14:18)
[2017-10-19] MEDS ORDERED: MORPHINE SULFATE 10 MG/ML INJ IV PRN (14:19)
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
[2017-10-19 14:46] LABS: INTERNATIONAL RATION (INR) 0.96; PARTIAL THROMBOPLASTIN TIME 29.7 SEC (23.5-35.8); PROTHROMBIN TIME 13.3 SEC (11.4-15.4)
[2017-10-19] MEDS ORDERED: MORPHINE SULFATE 10 MG/ML INJ IV ONE (15:00)
[2017-10-19] MEDS ORDERED: FUROSEMIDE INJ/PF 20 MG/2 ML SDV IV ONE (15:00)
[2017-10-19 15:58] LABS: HEMATOCRIT 30.2 % (37.9-51.0); HEMOGLOBIN 9.7 g/dL (13.5-17.0); MEAN CORPUSCULAR HEMOGLOBIN 24.7 pg (27.0-33.4); MEAN CORPUSCULAR VOLUME 77 fl (80-97); PLATELET COUNT 192 10^3/uL (150-450); RED BLOOD COUNT 3.92 10^6/uL (4.35-5.55)
[2017-10-19 16:32] LABS: APPEARANCE,URINE CLEAR; BILIRUBIN,URINE NEGATIVE (NEGATIVE); COLOR,URINE YELLOW; GLUCOSE, URINE >=500 mg/dL (NEGATIVE); KETONES,URINE NEGATIVE (NEGATIVE); LEUKOCYTE ESTERASE,URINE NEGATIVE (NEGATIVE); NITRITE,URINE NEGATIVE (NEGATIVE); PROTEIN,URINE NEGATIVE (NEGATIVE); URINE SPECIFIC GRAVITY 1.026; UROBILINOGEN,URINE NEGATIVE mg/dL (<2.0)
[2017-10-19] MEDS: HYDRALAZINE HCL 50 MG TABLET PO SCH (18:55)
[2017-10-19] MEDS ORDERED: ATORVASTATIN CALCIUM 20 MG TABLET PO SCH (22:00)
[2017-10-19] MEDS ORDERED: METOPROLOL SUCCINATE 50 MG TAB.SR.24H PO SCH (22:00)
[2017-10-19] MEDS: INSULIN LISPRO 100 UNIT/ML 3 ML VIAL SUBCUT PRN (22:01)
[2017-10-19] MEDS: HEPARIN SOD (PORCINE) 5,000 UNIT/ML 1 ML SYRINGE SUBCUT SCH (22:01)
[2017-10-19] MEDS: FAMOTIDINE 20 MG TABLET PO SCH (22:01)
[2017-10-19] MEDS: CLONIDINE HCL 0.1 MG TABLET PO SCH (22:02)
[2017-10-19] MEDS: FUROSEMIDE 40 MG TABLET PO SCH (22:02)
[2017-10-20] MEDS: HYDRALAZINE HCL 50 MG TABLET PO SCH ×4 (01:17→17:20)
[2017-10-20 06:18] LABS: HEMATOCRIT 29.1 % (37.9-51.0); HEMOGLOBIN 9.5 g/dL (13.5-17.0); MEAN CORPUSCULAR HEMOGLOBIN 25.3 pg (27.0-33.4); MEAN CORPUSCULAR HGB CONC 32.7 g/dL (32.0-36.0); MEAN CORPUSCULAR VOLUME 77 fl (80-97); PLATELET COUNT 193 10^3/uL (150-450); RED BLOOD COUNT 3.76 10^6/uL (4.35-5.55); RED CELL DISTRIBUTION WIDTH 14.8 % (11.5-14.0); WHITE BLOOD COUNT 7.3 10^3/uL (4.0-10.5)
[2017-10-20] MEDS: CLONIDINE HCL 0.1 MG TABLET PO SCH ×2 (06:31→14:34)
[2017-10-20] MEDS: HEPARIN SOD (PORCINE) 5,000 UNIT/ML 1 ML SYRINGE SUBCUT SCH ×2 (06:32→14:35)
[2017-10-20 06:46] LABS: ANION GAP 7 (5-19); BLOOD UREA NITROGEN 16 mg/dL (7-20); CALCIUM 10.5 mg/dL (8.4-10.2); CARBON DIOXIDE 27 mmol/L (22-30); CHLORIDE 104 mmol/L (98-107); CHOLESTEROL 134.91 mg/dL (0-200); CREATINE KINASE 116 U/L (55-170); GLUCOSE 261 mg/dL (75-110); SODIUM 138.4 mmol/L (137-145); TRIGLYCERIDES 128 mg/dL (<150)
[2017-10-20 06:57] LABS: DIRECT LDL 76 mg/dL (<100)
[2017-10-20] MEDS ORDERED: ASPIRIN 81 MG TABLET, ENT COATED PO SCH (10:00)
[2017-10-20] MEDS ORDERED: AMLODIPINE BESYLATE 10 MG TABLET PO SCH (10:00)
[2017-10-20] MEDS ORDERED: DOCUSATE SODIUM 100 MG CAPSULE PO SCH (10:00)
[2017-10-20] MEDS: FAMOTIDINE 20 MG TABLET PO SCH (10:31)
[2017-10-20] MEDS: FUROSEMIDE 40 MG TABLET PO SCH (10:31)
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
[2017-10-20] MEDS ORDERED: INSULIN GLARGINE,HUM.REC.ANLOG 300 UNIT/3 ML INSULN.PEN SUBCUT SCH (12:00)
[2017-10-20] MEDS: INSULIN LISPRO 100 UNIT/ML 3 ML VIAL SUBCUT PRN (12:14)
--- NOTE | 2017-10-20 13:40 | DRAGON STRESS TEST REPORT ---
INTRAVENOUS LEXISCAN CARDIOLITE STRESS TEST USING SINGLE PHOTON EMMISION COMPUTERIZED TOMOGRAPHIC. DATE OF PROCEDURE: October 20, 2017, INDICATION : Chest pain CARDIAC RISK FACTORS: Diabetes, hypertension, history of cardiomyopathy RESTING EKG: Sinus rhythm, minor nonspecific ST-T wave changes, nonspecific IVCD. STRESS EKG: No significant ST segment changes noted with LexiScan bolus REASON FOR TERMINATION: Protocol. PROCEDURE REPORT: Baseline heart rate 81 beats per minute with blood pressure of 160/105. Patient had no significant complaints. Patient was bolused with Lexiscan 0.4 mg intravenously followed by saline bolus. Heart rate at 2 minutes post bolus 96 with a blood pressure of 163/102. 3 minutes post bolus heart rate 93 with blood pressure of 157/96. No significant EKG changes were noted. Patient had no significant complaints during the procedure or postprocedure. CONCLUSIONS: Normal EKG and hemodynamic response to IV LexiScan. NUCLEAR DATA: At rest the patient was given 15.01 millicuries of technetium 99 sestamibi injected intravenously. As per protocol rest gated SPECT images were obtained. On day of stress test, the patient was given intravenous LexiScan at a dose of 0.4 mg in 5 mL intravenously, followed by flush with normal saline. Subsequently the stress dose of 47.2 millicuries of technetium 99 sestamibi was injected intravenously. As per protocol stress gated images were obtained. NUCLEAR INTERPRETATION: Both raw and processed data were used for interpretation. Visual, qualitative, computer-generated quantitative data was used. There was good myocardial uptake of technetium compound. Motion artifact and soft tissue attenuations were noted. Increased visceral uptake was noted. No definitive areas of transient perfusion defect noted, No definitive areas of fixed perfusion defect or scars noted. EKG gated imaging showed LV EF at 22 %, rest and stress gated EF similar visually, diffuse hypokinesia noted, LVH noted. T. I D. ratio was 1.15. Lung heart ratio noted to be within normal limits 0.31. No significant extracardiac and abnormal radiotracer activities were noted. RV free wall uptake was noted to be WNL. IMPRESSION: Also refer to comments under nuclear interpretation. Also test results needs to be interpreted in the context of pretest probability. 1. No definitive areas of transient perfusion defect noted. 2. There is no definitive scintigraphic evidence of myocardial infarction/scar. 3. EKG gated imaging shows left ventricular ejection fraction of approx. 22 %, diffuse hypokinesia noted. LVH noted. 4. Clinical correlation requested as occasionally single vessel disease or balanced ischemia could be missed. In approximately 10% of the cases Lexiscan may not cause adequate vasodilatory stress. RECOMMENDATIONS: Aggressive risk factor modification and medical management. Further evaluation may be needed if continued symptoms or other high risk indicators are noted on clinical evaluation. Close cardiology follow-up is also recommended. Clinical correlation with echocardiogram derived ejection fraction. Inability to exercise by itself can lead to increased cardiovascular event risks. Consider cardiology consultation and or follow-up if clinically indicated. I am available for cardiology evaluation and consultation if requested by the primary care nurse, unless patient already has a systems testing laboratory technician. REX
[2017-10-20 16:26] VITALS: BP 138/85
[2017-10-20] MEDS ORDERED: REGADENOSON INJ 0.4 MG/5 ML DISP.SYRIN IV ONE (16:26)
--- NOTE | 2017-10-20 16:42 | XCELERA REPORT ---
[address] [address] Transthoracic Echocardiogram Report Name: TANYA CLEARY JR Age: 47 yrs Gender: Male : 1970 Patient Status: Inpatient Patient Location: [address] [place] [address] Study Date: 10/20/2017 11:13 AM Height: 72 in Weight: 240 lb BSA: 2.3 m2 Procedure: A complete two-dimensional transthoracic echocardiogram was performed (2D, M-mode, spectral and color flow Doppler). The study was technically difficult with many images being suboptimal in quality. Reason For Study: Chest pain Ordering Physician: PARISH ROSE Performed By: Richie Garcia Interpretation Summary The Ejection Fraction estimate is 35-40% The left ventricle is grossly normal size. There is moderate concentric left ventricular hypertrophy. There is mild to moderate global hypokinesis of the left ventricle. Doppler measurements suggest pseudonormalized left ventricular relaxation, which is associated with grade II/IV or mild to moderate diastolic dysfunction Left ventricular systolic function is moderately reduced. The right ventricle is mildly dilated. The right ventricular systolic function is normal. The right atrium is mildly dilated. The left atrium is severely dilated. There is no mitral valve stenosis. There is a trace amount of mitral regurgitation There is no aortic valve stenosis No aortic regurgitation is present. There is a trace or physiologic amount of tricuspid regurgitation Tricuspid regurgitation jet envelope not well defined to measure RV systolic pressure accurately. The aortic root is not well visualized but is probably normal size. The inferior vena cava appeared normal and decreased < 50% with respiration (RAP 10-15 mmHg) MMode/2D Measurements & Calculations RVDd: 4.0 cm LVIDd: 6.4 cm FS: 13.4 % Ao root diam: 3.4 cm IVSd: 1.5 cm LVIDs: 5.6 cm EDV(Teich): 210.1 ml LVPWd: 1.5 cm ESV(Teich): 151.2 ml Ao root area: 8.9 cm2 EF(Teich): 28.0 % LA dimension: 5.4 cm Doppler Measurements & Calculations MV E max jero: MV P1/2t max jero: Ao V2 max: AI max jero: 76.2 cm/sec 66.6 cm/sec 148.9 cm/sec 297.1 cm/sec MV A max jero: MV P1/2t: 68.0 msec Ao max PG: AI max P.0 cm/sec 8.9 mmHg 35.3 mmHg MV E/A: 0.79 MVA(P1/2t): 3.2 cm2 AI dec slope: MV dec slope: 286.9 cm/sec2 219.2 cm/sec2 MV dec time: AI P1/2t: 0.19 sec 397.0 msec LV V1 max PG: PA V2 max: 3.0 mmHg 99.8 cm/sec LV V1 max: PA max P.0 mmHg 86.4 cm/sec Left Ventricle The left ventricle is grossly normal size. There is moderate concentric left ventricular hypertrophy. Left ventricular systolic function is moderately reduced. The Ejection Fraction estimate is 35-40%. Doppler measurements suggest pseudonormalized left ventricular relaxation, which is associated with grade II/IV or mild to moderate diastolic dysfunction. There is mild to moderate global hypokinesis of the left ventricle. Right Ventricle The right ventricle is mildly dilated. The right ventricle appears to be hypertrophied. The right ventricular systolic function is normal. Atria The right atrium is mildly dilated. The left atrium is severely dilated. Interarterial septum not well visualized and not well dopplered. Cannot comment on ASD/PFO presence. Mitral Valve The mitral valve is grossly normal. There is no mitral valve stenosis. There is a trace amount of mitral regurgitation. Aortic Valve The aortic valve is grossly normal. There is no aortic valve stenosis. No aortic regurgitation is present. Tricuspid Valve The tricuspid valve is not well visualized, but is grossly normal. There is no tricuspid stenosis. There is a trace or physiologic amount of tricuspid regurgitation. Tricuspid regurgitation jet envelope not well defined to measure RV systolic pressure accurately. Pulmonic Valve The pulmonic valve is not well visualized. Great Vessels The aortic root is not well visualized but is probably normal size. The inferior vena cava appeared normal and decreased < 50% with respiration (RAP 10-15 mmHg). Effusions There is no pericardial effusion. : PARISH ROSE > Jennifer Jose
--- NOTE | 2017-10-20 17:07 | PDOC DISCHARGE SUMMARY ---
General - Admit/Disc Date/PCP Admission Date/Primary Care Provider: 10/19/17 13:44 KIYA NOVAK MD Discharge Date: 10/20/17 - Discharge Diagnosis (1) Chest pain Is this a current diagnosis for this admission?: Yes (2) Diabetes mellitus Is this a current diagnosis for this admission?: Yes (3) Hypertension Is this a current diagnosis for this admission?: Yes (4) Hyperlipidemia Is this a current diagnosis for this admission?: Yes (5) Congestive heart failure Is this a current diagnosis for this admission?: Yes (6) MORAIMA (obstructive sleep apnea) Is this a current diagnosis for this admission?: Yes - Additional Information Resuscitation Status: Full Code Discharge Diet: Cardiac, Diabetic Discharge Activity: Activity As Tolerated, Balance Activity w/Rest, Slowly Increase Activity, Weigh Daily Home Medications: Amlodipine Besylate [Norvasc 10 mg Tablet] 10 mg PO DAILY 10/19/17 Aspirin [Aspirin 81 mg Chewable Tablet] 81 mg PO DAILY 10/19/17 Clonidine HCl [Catapres 0.1 mg Tablet] 0.1 mg PO Q8 10/19/17 Furosemide [Lasix 40 mg Tablet] 40 mg PO BID 10/19/17 Hydralazine HCl [Apresoline 50 mg Tablet] 50 mg PO Q6 10/19/17 Insulin Glargine,Hum.rec.anlog [Lantus Solostar] 14 unit SQ NOON 10/19/17 Insulin Lispro [Humalog Insulin (Lispro) 100 unit/mL] 4 unit SUBCUT PC 10/19/17 Metformin HCl [Glucophage 500 mg Tablet] 500 mg PO BIDBS 10/19/17 Metoprolol Succinate [Toprol Xl 50 mg Tab.sr] 50 mg PO Q8 10/19/17 Aspirin [Ecotrin 81 mg EC Tablet] 81 mg PO DAILY tabec 10/20/17 Atorvastatin Calcium [Lipitor 20 mg Tablet] 20 mg PO QHS tablet 10/20/17 History of Present Illness History of Present Illness: TANYA CLEARY JR is a 47 year old male with a past medical history significant for insulin-dependent diabetes mellitus, CHF, hypertension, hyperlipidemia, sleep apnea, and obesity who presented to the emergency department today from his outpatient 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 He reports the pain is substernal, constant, and worsened by activity. His pain is relieved by lying supine. He also reports that he has had 2-3 days of generalized abdominal discomfort with nausea, vomiting, and diarrhea. He reports decreased p.o. intake secondary to nausea. He denies fever, chills, body aches, palpitations, orthopnea, constipation, polydipsia and polyuria. Evaluation in the emergency department included EKG which revealed LVH with nonspecific intraventricular conduction delay which is unchanged from previous EKGs, chest x-ray negative for acute cardiopulmonary findings, mild anemia with a hemoglobin of 10.1, glucose 345, creatinine kinase 225, indeterminately elevated troponin at 0.075 (which appears to be near his baseline), minimally elevated proBNP at 607, and a normal lipase. At time of dictation, d-dimer is pending. The patient is referred to the hospitalist service for observational admission and workup of chest pain. Hospital Course Hospital Course: The patient is admitted for chest pain rule out with multiple risk factors for acute coronary syndrome; obesity, hypertension, hyperlipidemia, family history. EKG demonstrated normal sinus rhythm with LVH and a nonspecific intraventricular conduction delay; essentially unchanged from previous EKGs. Chest x-ray is benign. Troponins trended; remained indeterminately elevated though stable 5 ProBNP minimally elevated at 607 Echocardiogram revealed LVEF of 35-40% with moderate concentric LVH and moderate global left ventricular hypokinesis and moderate diastolic dysfunction. This is improved from his previous echo (09/18/15) when his LVEF was estimated to be less than 25%. Nuclear stress test was normal. D-dimer and lipase were negative. Lipid panel is acceptable; hemoglobin A1c 11.2%. Cardiology was consulted; recommended the patient's blood pressure be managed with a combination of hydralazine and nitrate given his allergy to LENORA inhibitors. Cardiology also recommends outpatient follow-up for overnight sleep study. The patient did meet with the patient educator regarding his uncontrolled diabetes mellitus. He has been enrolled in the transitions sales coach program. Lifestyle modifications were discussed in detail; the patient appears to be highly motivated to obtain her glucose control. He did not experience any additional episodes of chest pain while admitted. At time of discharge, patient is in stable condition, pain-free, maintaining oxygen saturations on room air. He is discharged home on his previous home medication regiment. He is recommended to follow-up with his primary care provider within 1 week and with mercantile reporter within 2-4 weeks. He is also recommended to obtain outpatient overnight sleep study to evaluate for sleep apnea. Physical Exam Vital Signs: Temp Pulse Resp BP Pulse Ox 97.8 F 95 16 138/85 H 99 10/20/17 15:14 10/20/17 15:14 10/20/17 15:14 10/20/17 15:14 10/20/17 15:14 Intake & Output 10/19/17 10/20/17 10/21/17 06:59 06:59 06:59 Intake Total 10 Balance 10 Weight 113.9 kg General appearance: PRESENT: no acute distress, cooperative, well-developed, well-nourished, other - Overweight Head exam: PRESENT: atraumatic, normocephalic Eye exam: PRESENT: conjunctiva pink, EOMI, PERRLA. ABSENT: scleral icterus Mouth exam: PRESENT: moist, tongue midline Neck exam: ABSENT: carotid bruit, JVD, lymphadenopathy, thyromegaly Respiratory exam: PRESENT: clear to auscultation walter, symmetrical, unlabored. ABSENT: rales, rhonchi, wheezes Cardiovascular exam: PRESENT: RRR. ABSENT: diastolic murmur, rubs, systolic murmur Pulses: PRESENT: normal dorsalis pedis pul Vascular exam: PRESENT: normal capillary refill GI/Abdominal exam: PRESENT: normal bowel sounds, soft. ABSENT: distended, guarding, mass, organolmegaly, rebound, tenderness Rectal exam: PRESENT: deferred Extremities exam: PRESENT: full ROM. ABSENT: calf tenderness, clubbing, pedal edema Neurological exam: PRESENT: alert, awake, oriented to person, oriented to place , oriented to time, oriented to situation, CN II-XII grossly intact. ABSENT: motor sensory deficit Psychiatric exam: PRESENT: appropriate affect, normal mood. ABSENT: homicidal ideation, suicidal ideation Skin exam: PRESENT: dry, intact, warm. ABSENT: cyanosis, rash Results Laboratory Results: 10/20/17 05:56 10/20/17 05:56 10/20/17 10/20/17 05:56 05:56 WBC 7.3 RBC 3.76 L Hgb 9.5 L Hct 29.1 L MCV 77 L MCH 25.3 L MCHC 32.7 RDW 14.8 H Plt Count 193 Sodium 138.4 Potassium 4.0 Chloride 104 Carbon Dioxide 27 Anion Gap 7 BUN 16 Creatinine 0.80 Est GFR ( Amer) > 60 Est GFR (Non-Af Amer) > 60 Glucose 261 H Calcium 10.5 H Triglycerides 128 Cholesterol 134.91 LDL Cholesterol Direct 76 VLDL Cholesterol 26.0 HDL Cholesterol 34 L 10/19/17 10/19/17 10/20/17 15:47 17:15 00:26 Creatine Kinase Troponin I 0.073 0.075 0.076 10/20/17 10/20/17 05:56 05:56 Creatine Kinase 116 Troponin I 0.074 Impressions: Chest X-Ray 10/19/17 11:45 IMPRESSION: No significant interval change. Cardiomegaly. No acute consolidations are identified. Other findings as noted above Qualifiers - * PATIENT BEING DISCHARGED WITH ANY OF THE FOLLOWING DIAGNOSIS: Heart Failure HF Pt being discharged on ACEI for LVEF less than 40%?: No Reason(s) for not prescribing ACEI:: Drug intolerance HF Pt being discharged on ARBS for LVEF less than 40%?: No Reason(s) for not prescribing ARBS:: Drug declined by patient HF Pt with Afib discharged with Warfarin?: No Reason(s) for not prescribing Warfarin:: Not indicated HF Pt discharged on evidence-based Beta Clary:: Yes Plan Discharge Plan: Discharge to home with self-care. Follow-up with primary care provider within 1 week. Follow-up with mercantile reporter within 2-4 weeks. Recommend overnight sleep study. Time Spent: Less than 30 Minutes
== END 2017-10-20 18:00 | disposition home or self-care (01) ==
LOC: ER 11:29 → EH 13:44 → 3N 16:52
PROVIDERS: ADMIT Internal Medicine; ATTEND Internal Medicine
DX: R07.2 Precordial pain (principal); E11.65 Type 2 diabetes mellitus with hyperglycemia; I11.0 Hypertensive heart disease with heart failure; I50.22 Chronic systolic (congestive) heart failure; E78.5 Hyperlipidemia, unspecified; G47.33 Obstructive sleep apnea (adult) (pediatric); R55 Syncope and collapse; R11.2 Nausea with vomiting, unspecified; R19.7 Diarrhea, unspecified; D64.9 Anemia, unspecified; E66.3 Overweight; R79.89 Other specified abnormal findings of blood chemistry; R63.0 Anorexia; I42.9 Cardiomyopathy, unspecified; R10.9 Unspecified abdominal pain; Z68.34 Body mass index [BMI] 34.0-34.9, adult; Z79.4 Long term (current) use of insulin; Z94.7 Corneal transplant status; Z87.828 Personal history of other (healed) physical injury and trauma; Z82.49 Family history of ischemic heart disease and other diseases of the circulatory system; Z79.899 Other long term (current) drug therapy; Z79.82 Long term (current) use of aspirin
CPT/HCPCS: 93005; 99285; 96374; 96375; 36415 ×2; 82553; 82962 ×2; 82550 ×2; 82565; 83690; 85025; 85027 ×2; 85610; 85730; 80048; 80053; 81001; 84484 ×2; 83036; 85379; 82803; 80061; 83880; 93306; 93017; 71045; 78452; 93010; 94660; G0378 ×3; A9500; J2785; J1644 ×2; J1815 ×4; J3490 ×2; Q9969

== ENCOUNTER 2017-11-25 10:28 | Emergency (ER) | payer BC ==
[2017-11-25 10:48] VITALS: BP 160/98
[2017-11-25] MEDS ORDERED: ASPIRIN 81 MG TABLET, CHEWABLE PO ONE (10:51)
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
[2017-11-25 11:27] LABS: ABSOLUTE LYMPHOCYTES (AUTO) 0.9 10^3/uL (0.5-4.7); ABSOLUTE MONOCYTES (AUTO) 0.6 10^3/uL (0.1-1.4); ABSOLUTE NEUT (AUTO) 5.2 10^3/uL (1.7-8.2); BASOPHILS % (AUTO) 0.6 % (0-2); EOSINOPHILS % (AUTO) 0.7 % (0-6); HEMATOCRIT 32.5 % (37.9-51.0); LYMPHOCYTES % (AUTO) 13.9 % (13-45); MEAN CORPUSCULAR HEMOGLOBIN 21.2 pg (27.0-33.4); MEAN CORPUSCULAR HGB CONC 30.8 g/dL (32.0-36.0); MEAN CORPUSCULAR VOLUME 69 fl (80-97); MONOCYTES % (AUTO) 8.6 % (3-13); PLATELET COUNT 280 10^3/uL (150-450); RED BLOOD COUNT 4.73 10^6/uL (4.35-5.55); RED CELL DISTRIBUTION WIDTH 18.2 % (11.5-14.0); SEGMENTED NEUTROPHILS % (AUTO) 76.2 % (42-78); TOTAL CELLS COUNTED % (AUTO) 100 %; WHITE BLOOD COUNT 6.8 10^3/uL (4.0-10.5)
--- NOTE | 2017-11-25 11:28 | RADIOLOGY REPORT (SQ) ---
EXAM DESCRIPTION: CHEST 2 VIEWS COMPLETED DATE/TIME: 11/25/2017 11:11 am REASON FOR STUDY: CP SOB COMPARISON: None. NUMBER OF VIEWS: Two view. TECHNIQUE: Frontal and lateral radiographic views of the chest acquired. LIMITATIONS: None. FINDINGS: LUNGS AND PLEURA: No opacities, masses or pneumothorax. No pleural effusion. MEDIASTINUM AND HILAR STRUCTURES: No masses. No contour abnormalities. HEART AND VASCULAR STRUCTURES: Heart enlarged without failure. Aorta normal for age. BONES: No acute findings. HARDWARE: None in the chest. OTHER: No other significant finding. IMPRESSION: CARDIAC ENLARGEMENT WITHOUT FAILURE. TECHNICAL DOCUMENTATION: JOB ID: [id number] [employer]- All Rights Reserved Reading location - IP/workstation name: [email or web address]
[2017-11-25 11:48] LABS: ALANINE AMINOTRANSFERASE 27 U/L (21-72); ALKALINE PHOSPHATASE 93 U/L (38-126); ANION GAP 11 (5-19); ASPARTATE AMINO TRANSFERASE 20 U/L (17-59); BILIRUBIN,DIRECT 0.2 mg/dL (0.0-0.4); BILIRUBIN,TOTAL 0.3 mg/dL (0.2-1.3); BLOOD UREA NITROGEN 12 mg/dL (7-20); CARBON DIOXIDE 28 mmol/L (22-30); CHLORIDE 102 mmol/L (98-107); GLUCOSE 236 mg/dL (75-110); POTASSIUM 4.3 mmol/L (3.6-5.0); SODIUM 140.8 mmol/L (137-145); TOTAL PROTEIN 7.1 g/dL (6.3-8.2)
[2017-11-25 12:03] LABS: TROPONIN I 0.053 ng/mL
--- NOTE | 2017-11-25 21:38 | EKG REPORT ---
SEVERITY:- ABNORMAL ECG - SINUS RHYTHM FIRST DEGREE AV BLOCK LEFT ATRIAL ABNORMALITY NONSPECIFIC INTRAVENTRICULAR CONDUCTION DELAY LEFT VENTRICULAR HYPERTROPHY : Confirmed by: Mariana Montano MD 25-Nov-2017 21:37:56
== END 2017-11-25 13:00 | disposition left against medical advice (07) ==
LOC: ER 10:28
DX: R07.9 Chest pain, unspecified (principal); Z53.20 Procedure and treatment not carried out because of patient's decision for unspecified reasons; R06.02 Shortness of breath; R42 Dizziness and giddiness; I10 Essential (primary) hypertension; E11.9 Type 2 diabetes mellitus without complications; Z79.4 Long term (current) use of insulin; Z91.013 Allergy to seafood; Z88.8 Allergy status to other drugs, medicaments and biological substances
CPT/HCPCS: 36415; 71046; 80053; 83880; 84484; 85025; 93005; 93010; 99281

== ENCOUNTER 2018-09-16 02:11 | Emergency (ER) | payer BC ==
[2018-09-16] MEDS ORDERED: MORPHINE SULFATE 10 MG/ML INJ IV ONE (02:26)
[2018-09-16 02:41] LABS: ABSOLUTE BASOPHILS # (AUTO) 0.1 10^3/uL (0.0-0.2); ABSOLUTE LYMPHOCYTES (AUTO) 0.6 10^3/uL (0.5-4.7); ABSOLUTE MONOCYTES (AUTO) 0.6 10^3/uL (0.1-1.4); ABSOLUTE NEUT (AUTO) 5.4 10^3/uL (1.7-8.2); BASOPHILS % (AUTO) 1.2 % (0-2); EOSINOPHILS % (AUTO) 0.7 % (0-6); HEMATOCRIT 30.4 % (37.9-51.0); HEMOGLOBIN 8.9 g/dL (13.5-17.0); LYMPHOCYTES % (AUTO) 8.3 % (13-45); MEAN CORPUSCULAR HEMOGLOBIN 18.9 pg (27.0-33.4); MEAN CORPUSCULAR HGB CONC 29.3 g/dL (32.0-36.0); MONOCYTES % (AUTO) 9.3 % (3-13); PLATELET COUNT 206 10^3/uL (150-450); RED BLOOD COUNT 4.71 10^6/uL (4.35-5.55); RED CELL DISTRIBUTION WIDTH 18.1 % (11.5-14.0); SEGMENTED NEUTROPHILS % (AUTO) 80.5 % (42-78); TOTAL CELLS COUNTED % (AUTO) 100 %; WHITE BLOOD COUNT 6.7 10^3/uL (4.0-10.5)
[2018-09-16 02:42] LABS: MEAN CORPUSCULAR VOLUME 65 fl (80-97)
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
[2018-09-16 03:01] LABS: ANISOCYTOSIS 2+; HYPOCHROMASIA 3+; POLYCHROMASIA 1+
[2018-09-16 03:02] LABS: BURR CELLS SLIGHT; HELMET CELLS 1+; OVALOCYTES 1+; PLATELET COMMENT ADEQUATE; SCHISTOCYTES SLIGHT; TARGET CELLS SLIGHT; TEAR DROP CELLS 1+
[2018-09-16 03:04] LABS: ANION GAP 8 (5-19); BLOOD UREA NITROGEN 17 mg/dL (7-20); CALCIUM 10.6 mg/dL (8.4-10.2); CARBON DIOXIDE 24 mmol/L (22-30); CHLORIDE 108 mmol/L (98-107); GLUCOSE 190 mg/dL (75-110); POTASSIUM 4.3 mmol/L (3.6-5.0); SODIUM 139.5 mmol/L (137-145)
--- NOTE | 2018-09-16 03:38 | RADIOLOGY REPORT (SQ) ---
EXAM DESCRIPTION: XR ABDOMEN 2 VIEWS SUPINE ERECT COMPLETED DATE/TME: 09/16/2018 02:39 CLINICAL HISTORY: 48 years, Male, constipation, pain COMPARISON: None. NUMBER OF VIEWS: 3 TECHNIQUE: Supine and erect views of the abdomen LIMITATIONS: None. FINDINGS: Nonspecific, nonobstructive bowel gas pattern. Gas and stool in the colon. No free air IMPRESSION: Nonspecific nonobstructive gas pattern copyright 2010 [employer]- All Rights Reserved
--- NOTE | 2018-09-16 03:39 | RADIOLOGY REPORT (SQ) ---
EXAM DESCRIPTION: XR CHEST 1 VIEW COMPLETED DATE/TME: 09/16/2018 02:26 CLINICAL HISTORY: 48 years, Male, chest wall pain COMPARISON: 03/28/2018 chest NUMBER OF VIEWS: 1 TECHNIQUE: Portable chest LIMITATIONS: None. FINDINGS: Cardiomegaly. Lungs clear. No pneumothorax IMPRESSION: Cardiomegaly. Lungs are clear copyright 2010 [employer]- All Rights Reserved
[2018-09-16 04:04] VITALS: BP 176/115
--- NOTE | 2018-09-16 22:38 | EKG REPORT ---
SEVERITY:- ABNORMAL ECG - SINUS RHYTHM FIRST DEGREE AV BLOCK LEFT ATRIAL ABNORMALITY NONSPECIFIC INTRAVENTRICULAR CONDUCTION DELAY LEFT VENTRICULAR HYPERTROPHY : Confirmed by: Jennifer Jose 16-Sep-2018 22:36:32
--- NOTE | 2018-09-17 16:11 | EKG REPORT ---
SEVERITY:- ABNORMAL ECG - SINUS RHYTHM FIRST DEGREE AV BLOCK LEFT ATRIAL ABNORMALITY : Confirmed by: Mariana Montano MD 17-Sep-2018 16:10:12
== END 2018-09-16 04:25 | disposition home or self-care (01) ==
LOC: ER 02:11
DX: R60.0 Localized edema (principal); R07.9 Chest pain, unspecified; K59.00 Constipation, unspecified; R06.02 Shortness of breath
CPT/HCPCS: 93005; 99285; 96374; 36415; 85025; 80048; 84484; 74019; 71045; 93010; J2270

== ENCOUNTER 2018-09-17 10:10 | Emergency (ER) | payer BC ==
[2018-09-17] MEDS ORDERED: ASPIRIN 81 MG TABLET, CHEWABLE PO ONE (10:34)
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
[2018-09-17 11:29] LABS: ABSOLUTE BASOPHILS # (AUTO) 0.1 10^3/uL (0.0-0.2); ABSOLUTE EOSINOPHILS # (AUTO) 0.1 10^3/uL (0.0-0.6); ABSOLUTE LYMPHOCYTES (AUTO) 0.7 10^3/uL (0.5-4.7); ABSOLUTE MONOCYTES (AUTO) 0.5 10^3/uL (0.1-1.4); ABSOLUTE NEUT (AUTO) 5.3 10^3/uL (1.7-8.2); EOSINOPHILS % (AUTO) 1.3 % (0-6); HEMATOCRIT 30.4 % (37.9-51.0); HEMOGLOBIN 8.9 g/dL (13.5-17.0); MEAN CORPUSCULAR HEMOGLOBIN 18.8 pg (27.0-33.4); MEAN CORPUSCULAR HGB CONC 29.1 g/dL (32.0-36.0); MEAN CORPUSCULAR VOLUME 65 fl (80-97); MONOCYTES % (AUTO) 7.4 % (3-13); PLATELET COUNT 198 10^3/uL (150-450); RED BLOOD COUNT 4.71 10^6/uL (4.35-5.55); RED CELL DISTRIBUTION WIDTH 18.3 % (11.5-14.0); SEGMENTED NEUTROPHILS % (AUTO) 79.3 % (42-78); TOTAL CELLS COUNTED % (AUTO) 100 %; WHITE BLOOD COUNT 6.6 10^3/uL (4.0-10.5)
[2018-09-17 11:49] LABS: ALANINE AMINOTRANSFERASE 50 U/L (21-72); ALBUMIN 3.1 g/dL (3.5-5.0); ALKALINE PHOSPHATASE 62 U/L (38-126); ANION GAP 7 (5-19); ASPARTATE AMINO TRANSFERASE 32 U/L (17-59); BILIRUBIN,DIRECT 0.1 mg/dL (0.0-0.4); BILIRUBIN,TOTAL 0.4 mg/dL (0.2-1.3); BLOOD UREA NITROGEN 22 mg/dL (7-20); CALCIUM 10.6 mg/dL (8.4-10.2); CARBON DIOXIDE 25 mmol/L (22-30); CHLORIDE 107 mmol/L (98-107); GLUCOSE 169 mg/dL (75-110); LIPASE 459.3 U/L (23-300); POTASSIUM 4.5 mmol/L (3.6-5.0); SODIUM 138.8 mmol/L (137-145); TOTAL PROTEIN 5.7 g/dL (6.3-8.2)
[2018-09-17 11:53] LABS: ANISOCYTOSIS 2+; HYPOCHROMASIA 2+; OVALOCYTES 1+; POIKILOCYTOSIS 1+; POLYCHROMASIA SLIGHT; TARGET CELLS SLIGHT
[2018-09-17 11:54] LABS: PLATELET COMMENT ADEQUATE
[2018-09-17 12:15] LABS: CREATINE KINASE MB 3.37 ng/mL (<4.55)
[2018-09-17 12:21] LABS: TROPONIN I 0.045 ng/mL
[2018-09-17] MEDS ORDERED: FUROSEMIDE INJ/PF 40 MG/4 ML SDV IV ONE (12:27)
[2018-09-17 12:33] LABS: APPEARANCE,URINE CLEAR; BILIRUBIN,URINE NEGATIVE (NEGATIVE); COLOR,URINE YELLOW; GLUCOSE, URINE 50 mg/dL (NEGATIVE); KETONES,URINE NEGATIVE (NEGATIVE); LEUKOCYTE ESTERASE,URINE NEGATIVE (NEGATIVE); NITRITE,URINE NEGATIVE (NEGATIVE); PROTEIN,URINE 100 mg/dL (NEGATIVE); URINE SPECIFIC GRAVITY 1.029
--- NOTE | 2018-09-17 13:13 | RADIOLOGY REPORT (SQ) ---
EXAM DESCRIPTION: ACUTE ABDOMEN SERIES COMPLETED DATE/TIME: 09/17/2018 12:29 pm REASON FOR STUDY: chest pain sob constipation COMPARISON: Previous day NUMBER OF VIEWS: Three views. TECHNIQUE: Frontal chest, supine abdomen and upright/decubitus abdomen radiographic images acquired. LIMITATIONS: None. FINDINGS: CHEST: Pulmonary vascular congestion. FREE AIR: None. No abnormal gas collections. BOWEL GAS PATTERN: Nonobstructive pattern. No dilated loops or air fluid levels. CALCIFICATIONS: No suspicious calcifications. HARDWARE: None in the abdomen. SOFT TISSUES: No gross mass or suggestion of organomegaly. BONES: No acute fracture. No worrisome bone lesions. OTHER: No other significant finding. IMPRESSION: Pulmonary vascular congestion. No evidence of bowel obstruction. TECHNICAL DOCUMENTATION: JOB ID: [id number] [employer] All Rights Reserved Reading location - IP/workstation name: [email or web address]
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
[2018-09-17 15:43] VITALS: BP 182/120
== END 2018-09-17 15:48 | disposition home or self-care (01) ==
LOC: ER 10:10
DX: I11.0 Hypertensive heart disease with heart failure (principal); I50.9 Heart failure, unspecified; Z79.899 Other long term (current) drug therapy; K59.00 Constipation, unspecified; K85.90 Acute pancreatitis without necrosis or infection, unspecified; R07.89 Other chest pain; R06.02 Shortness of breath; E11.65 Type 2 diabetes mellitus with hyperglycemia; D64.9 Anemia, unspecified; Z88.8 Allergy status to other drugs, medicaments and biological substances; Z91.013 Allergy to seafood; I44.0 Atrioventricular block, first degree
CPT/HCPCS: 99285; 96374; 36415; 82553; 83690; 85025; 80053; 81001; 84484; 83880; 74022; J1940

== ENCOUNTER 2018-10-05 04:42 | Observation (INO) | payer BC ==
[2018-10-05] MEDS ORDERED: NITROGLYCERIN 2% OINTMENT 1 GM PACKET TP ONE (04:57)
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
[2018-10-05] MEDS: NITROGLYCERIN 0.4 MG/TAB 25 TAB/BOTTLE SL PRN ×2 (05:04→05:16)
[2018-10-05] MEDS ORDERED: ASPIRIN 81 MG TABLET, CHEWABLE PO ONE (05:27)
[2018-10-05 05:31] LABS: ABSOLUTE BASOPHILS # (AUTO) 0.1 10^3/uL (0.0-0.2); ABSOLUTE EOSINOPHILS # (AUTO) 0.1 10^3/uL (0.0-0.6); ABSOLUTE LYMPHOCYTES (AUTO) 1.1 10^3/uL (0.5-4.7); ABSOLUTE MONOCYTES (AUTO) 0.7 10^3/uL (0.1-1.4); ABSOLUTE NEUT (AUTO) 5.2 10^3/uL (1.7-8.2); BASOPHILS % (AUTO) 1.7 % (0-2); EOSINOPHILS % (AUTO) 1.2 % (0-6); LYMPHOCYTES % (AUTO) 15.7 % (13-45); MONOCYTES % (AUTO) 9.8 % (3-13); SEGMENTED NEUTROPHILS % (AUTO) 71.6 % (42-78); TOTAL CELLS COUNTED % (AUTO) 100 %
--- NOTE | 2018-10-05 05:45 | RADIOLOGY REPORT (SQ) ---
EXAM DESCRIPTION: XR CHEST 1 VIEW COMPLETED DATE/TME: 10/05/2018 04:57 CLINICAL HISTORY: 48 years, Male, shortness of breath COMPARISON: 09/16/2018 NUMBER OF VIEWS: One TECHNIQUE: AP view of the chest LIMITATIONS: None. FINDINGS: There is mild pulmonary vascular congestion. The heart is enlarged. There is no pneumothorax or pleural effusion. The bones are unremarkable. IMPRESSION: Mild pulmonary vascular congestion copyright 2010 [employer]- All Rights Reserved
[2018-10-05 05:56] LABS: ALANINE AMINOTRANSFERASE 48 U/L (21-72); ALBUMIN 3.4 g/dL (3.5-5.0); ALKALINE PHOSPHATASE 53 U/L (38-126); ANION GAP 7 (5-19); ASPARTATE AMINO TRANSFERASE 46 U/L (17-59); BILIRUBIN,DIRECT 0.2 mg/dL (0.0-0.4); BILIRUBIN,TOTAL 0.5 mg/dL (0.2-1.3); BLOOD UREA NITROGEN 18 mg/dL (7-20); CARBON DIOXIDE 27 mmol/L (22-30); CHLORIDE 105 mmol/L (98-107); GLUCOSE 192 mg/dL (75-110); POTASSIUM 4.1 mmol/L (3.6-5.0); SODIUM 139.2 mmol/L (137-145); TOTAL PROTEIN 6.3 g/dL (6.3-8.2)
[2018-10-05] MEDS ORDERED: FUROSEMIDE INJ/PF 40 MG/4 ML SDV IV ONE (06:08)
[2018-10-05 06:10] LABS: TROPONIN I 0.085 ng/mL
[2018-10-05] MEDS ORDERED: METOPROLOL SUCCINATE 50 MG TAB.SR.24H PO ONE (06:27)
[2018-10-05] MEDS ORDERED: HYDRALAZINE HCL 50 MG TABLET PO ONE (06:27)
[2018-10-05 06:31] LABS: HEMOGLOBIN 8.9 g/dL (13.5-17.0); WHITE BLOOD COUNT 6.9 10^3/uL (4.0-10.5)
[2018-10-05 06:32] LABS: HEMATOCRIT 30.4 % (37.9-51.0); PLATELET COUNT 214 10^3/uL (150-450)
[2018-10-05 06:33] LABS: RED BLOOD COUNT 4.87 10^6/uL (4.35-5.55)
[2018-10-05 06:34] LABS: MEAN CORPUSCULAR HEMOGLOBIN 18.2 pg (27.0-33.4); MEAN CORPUSCULAR HGB CONC 29.1 g/dL (32.0-36.0); MEAN CORPUSCULAR VOLUME 63 fl (80-97)
[2018-10-05 06:36] LABS: HYPOCHROMASIA 2+; POLYCHROMASIA SLIGHT
[2018-10-05 06:37] LABS: ANISOCYTOSIS 2+; OVALOCYTES 2+; PLATELET COMMENT ADEQUATE; POIKILOCYTOSIS 1+; SCHISTOCYTES SLIGHT; TARGET CELLS SLIGHT
[2018-10-05] MEDS ORDERED: PROMETHAZINE HCL INJ 25 MG/1 ML VIAL IV PRN (08:41)
[2018-10-05] MEDS ORDERED: MAGNESIUM HYDROXIDE SUSP 30 ML UDCUP PO PRN (08:41)
[2018-10-05] MEDS ORDERED: ACETAMINOPHEN 325 MG TABLET PO PRN (08:41)
[2018-10-05] MEDS ORDERED: MAG HYDROX/AL HYDROX/SIMETH SUSP 30 ML UDCUP PO PRN (08:41)
[2018-10-05] MEDS ORDERED: CLONIDINE HCL 0.2 MG TABLET PO ONE (10:00)
[2018-10-05] MEDS ORDERED: LOSARTAN POTASSIUM 25 MG TABLET PO SCH (10:00)
[2018-10-05] MEDS ORDERED: LORAZEPAM INJ 2 MG/1 ML VIAL IV ONE (10:30)
[2018-10-05] MEDS: FUROSEMIDE INJ/PF 40 MG/4 ML SDV IV SCH ×2 (10:35→22:08)
[2018-10-05] MEDS: ASPIRIN 81 MG TABLET, ENT COATED PO SCH (10:36)
[2018-10-05] MEDS: DOCUSATE SODIUM 100 MG CAPSULE PO SCH (10:36)
--- NOTE | 2018-10-05 10:54 | EKG REPORT ---
SEVERITY:- ABNORMAL ECG - SINUS RHYTHM FIRST DEGREE AV BLOCK LEFT ATRIAL ABNORMALITY NONSPECIFIC INTRAVENTRICULAR CONDUCTION DELAY LEFT VENTRICULAR HYPERTROPHY : Confirmed by: Jennifer Jose 05-Oct-2018 10:53:12
[2018-10-05 11:23] LABS: PATH REVIEW PATHOLOGIST REVIEWED
[2018-10-05] MEDS ORDERED: GLUCAGON,HUMAN RECOMB 1 MG INJ IM PRN (14:12)
[2018-10-05] MEDS ORDERED: DEXTROSE 40% GEL 15 GM TUBE PO PRN ×2 (14:12)
[2018-10-05] MEDS ORDERED: DEXTROSE 50%-WATER 25 GM/50 ML DISP.SYRIN IV PRN ×2 (14:12)
[2018-10-05] MEDS: INSULIN LISPRO 100 UNIT/ML 3 ML VIAL SUBCUT SCH ×2 (16:14→22:06)
--- NOTE | 2018-10-05 16:16 | XCELERA REPORT ---
[address] [address] Transthoracic Echocardiogram Report Name: MADIHA PELAEZ, TANYA Wilson, Age: 48 yrs Gender: Male : 1970 Patient Status: Inpatient Patient Location: [address] [place], [place] [address] Study Date: 10/05/2018 02:45 PM Height: 72 in Weight: 260 lb BSA: 2.4 m2 Procedure: A complete two-dimensional transthoracic echocardiogram was performed (2D, M-mode, spectral and color flow Doppler). The study was technically adequate with some images being suboptimal in quality. Reason For Study: CONGESTIVE HEART FAILURE Ordering Physician: CHELITA HART Performed By: Richie Garcia Interpretation Summary The Ejection Fraction estimate is 30-35% Left ventricular systolic function is moderate to severely reduced. The left ventricle is mildly dilated. There is borderline concentric left ventricular hypertrophy. Wall motion cannot be accurately commented on, but no definite regional wall motion abnormalities noted. Doppler measurements suggest pseudonormalized left ventricular relaxation, which is associated with grade II/IV or mild to moderate diastolic dysfunction The right ventricular systolic function is borderline reduced. Borderline right ventricular enlargement. The right atrium is normal. The left atrium is mildly dilated. There is a mild amount of mitral regurgitation There is no mitral valve stenosis. There is a mild amount of aortic regurgitation There is no aortic valve stenosis There is a trace to mild amount of tricuspid regurgitation Right ventricular systolic pressure is estimated to be elevated at 30-40mmHg. There is mild pulmonary hypertension by echo The aortic root is not well visualized but is probably normal size. The inferior vena cava appeared normal and decreased > 50% with respiration (RAP 5-10 mmHg) There is no pericardial effusion. MMode/2D Measurements & Calculations RVDd: 3.9 cm LVIDd: 6.3 cm FS: 15.0 % Ao root diam: 3.5 cm IVSd: 1.5 cm LVIDs: 5.4 cm EDV(Teich): 201.3 ml Ao root area: 9.7 cm2 LVPWd: 1.5 cm ESV(Teich): 138.6 ml LA dimension: 5.2 cm EF(Teich): 31.2 % Doppler Measurements & Calculations MV E max jero: MV P1/2t max jero: Ao V2 max: LV V1 max P.8 cm/sec 116.8 cm/sec 117.8 cm/sec 2.2 mmHg MV A max jero: MV P1/2t: 69.9 msec Ao max PG: LV V1 max: 65.2 cm/sec MVA(P1/2t): 3.1 cm2 5.6 mmHg 73.4 cm/sec MV E/A: 2.0 MV dec slope: 489.3 cm/sec2 MV dec time: 0.17 sec PA V2 max: PI end-d jero: TR max jero: MV P1/2t-pr_phl: 74.5 cm/sec 144.8 cm/sec 274.5 cm/sec 69.9 msec PA max P.2 mmHg TR max P.1 mmHg Left Ventricle There is borderline concentric left ventricular hypertrophy. The left ventricle is mildly dilated. Left ventricular systolic function is moderate to severely reduced. The Ejection Fraction estimate is 30-35%. Doppler measurements suggest pseudonormalized left ventricular relaxation, which is associated with grade II/IV or mild to moderate diastolic dysfunction. Wall motion cannot be accurately commented on, but no definite regional wall motion abnormalities noted. Right Ventricle Borderline right ventricular enlargement. There is normal right ventricular wall thickness. The right ventricular systolic function is borderline reduced. Atria The right atrium is normal. The left atrium is mildly dilated. Interarterial septum not well visualized and not well dopplered. Cannot comment on ASD/PFO presence. Mitral Valve The mitral valve leaflets are sclerotic, but show no functional abnormalities. There is no mitral valve stenosis. There is a mild amount of mitral regurgitation. Aortic Valve The aortic valve is grossly normal. There is no aortic valve stenosis. There is a mild amount of aortic regurgitation. Tricuspid Valve The tricuspid valve is not well visualized, but is grossly normal. There is no tricuspid stenosis. There is a trace to mild amount of tricuspid regurgitation. There is mild pulmonary hypertension by echo. Right ventricular systolic pressure is estimated to be elevated at 30-40mmHg. Pulmonic Valve The pulmonic valve is not well visualized. Great Vessels The aortic root is not well visualized but is probably normal size. The inferior vena cava appeared normal and decreased > 50% with respiration (RAP 5-10 mmHg). Effusions There is no pericardial effusion. : CHELITA HART > Jennifer Jose
[2018-10-05] MEDS: METOPROLOL SUCCINATE 50 MG TAB.SR.24H PO SCH ×2 (16:18→22:08)
[2018-10-05] MEDS: CLONIDINE HCL 0.1 MG TABLET PO SCH ×2 (16:18→22:08)
[2018-10-05] MEDS: HEPARIN SOD (PORCINE) 5,000 UNIT/ML 1 ML SYRINGE SUBCUT SCH ×2 (16:18→22:08)
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
[2018-10-05] MEDS: HYDRALAZINE HCL 50 MG TABLET PO SCH (18:26)
[2018-10-05] MEDS ORDERED: ATORVASTATIN CALCIUM 20 MG TABLET PO SCH (22:00)
[2018-10-05] MEDS ORDERED: INSULIN GLARGINE,HUM.REC.ANLOG 1,000 UNIT/10 ML VIAL SUBCUT SCH (22:00)
[2018-10-06] MEDS: HYDRALAZINE HCL 50 MG TABLET PO SCH ×3 (00:36→11:51)
[2018-10-06] MEDS: METOPROLOL SUCCINATE 50 MG TAB.SR.24H PO SCH (05:28)
[2018-10-06] MEDS: CLONIDINE HCL 0.1 MG TABLET PO SCH (05:28)
[2018-10-06] MEDS: HEPARIN SOD (PORCINE) 5,000 UNIT/ML 1 ML SYRINGE SUBCUT SCH (05:29)
[2018-10-06 05:37] LABS: ABSOLUTE RETICS # 0.113 10^6/uL (0.028-0.122); HEMATOCRIT 29.6 % (37.9-51.0); HEMOGLOBIN 8.6 g/dL (13.5-17.0); MEAN CORPUSCULAR HEMOGLOBIN 18.4 pg (27.0-33.4); MEAN CORPUSCULAR HGB CONC 29.1 g/dL (32.0-36.0); MEAN CORPUSCULAR VOLUME 63 fl (80-97); PLATELET COUNT 182 10^3/uL (150-450); RED BLOOD COUNT 4.68 10^6/uL (4.35-5.55); RED CELL DISTRIBUTION WIDTH 18.2 % (11.5-14.0); RETICULOCYTE COUNT (AUTO) 2.42 % (0.66-2.85); WHITE BLOOD COUNT 7.1 10^3/uL (4.0-10.5)
[2018-10-06 05:55] LABS: ANION GAP 7 (5-19); BLOOD UREA NITROGEN 17 mg/dL (7-20); CALCIUM 10.5 mg/dL (8.4-10.2); CARBON DIOXIDE 30 mmol/L (22-30); CHLORIDE 102 mmol/L (98-107); GLUCOSE 202 mg/dL (75-110); POTASSIUM 4.4 mmol/L (3.6-5.0); SODIUM 138.9 mmol/L (137-145)
[2018-10-06] MEDS ORDERED: PANTOPRAZOLE SODIUM 20 MG TABLET.DR PO SCH (06:00)
[2018-10-06] MEDS ORDERED: IRON SUCROSE COMPLEX INJ/PF 100 MG/5 ML SDV IV ONE (07:46)
[2018-10-06] MEDS: INSULIN LISPRO 100 UNIT/ML 3 ML VIAL SUBCUT SCH ×2 (08:14→11:51)
[2018-10-06] MEDS: DOCUSATE SODIUM 100 MG CAPSULE PO SCH (09:34)
[2018-10-06] MEDS: FUROSEMIDE INJ/PF 40 MG/4 ML SDV IV SCH (09:34)
[2018-10-06] MEDS: ASPIRIN 81 MG TABLET, ENT COATED PO SCH (09:34)
[2018-10-06] MEDS ORDERED: LISINOPRIL 10 MG TABLET PO SCH (10:00)
[2018-10-06] MEDS ORDERED: CLONIDINE HCL 0.1 MG TABLET PO SCH (10:00)
[2018-10-06] MEDS ORDERED: (PENDING PHARMACY ID) (Lisinopril [Zestril] 20 MG) PO SCH (10:00)
[2018-10-06 12:35] VITALS: BP 161/93
--- NOTE | 2018-10-06 17:20 | PDOC CONSULTATION ---
Consultation-Blank Consultation: Ux Manager note. The patient was briefly seen and had increased his clonidine to 0.2 mg p.o. every 8 hours. By the time I could comments officially see the patient in consult the patient having felt well and at the patient's request since his blood pressure was well controlled and he was asymptomatic the patient was discharged home hence formal consult not rendered.
--- NOTE | 2018-10-11 11:15 | PDOC DISCHARGE SUMMARY ---
General - Admit/Disc Date/PCP Admission Date/Primary Care Provider: 10/05/18 08:31 NADIRA ENGLAND MD Discharge Date: 10/06/18 - Discharge Diagnosis (1) Hypertensive urgency Is this a current diagnosis for this admission?: Yes Summary: Patient presented with blood pressure is 187/117. Patient was admitted to the medical floor on continuous cardiac telemetry. His home medications were resumed; continue clonidine 0.1 mg p.o. every 8 hours, hydralazine 50 mg p.o. every 6 hours, metoprolol 50 mg p.o. every 8 hours. He was started on IV furosemide for diuresis. Cardiology was consulted; increased home dose cloinidine to 0.2 mg TID. Cardiac diet. Improved blood pressure control was achieved; 163/91 at discharge. Patient was advised to continue medications as above, eat a low sodium diet, and to follow up with his established nurse sane, Dr. Garcia, within 1 week for further evaluation and management. (2) CHF exacerbation Is this a current diagnosis for this admission?: Yes Summary: Resolved. Echocardiogram reveals LVEF 30 to 35% with mildly dilated left ventricle and mild to moderate diastolic dysfunction. Right ventricle systolic function is borderline reduced. Left atrium is mildly dilatated. Mild pulmonary hypertension. Continue antihypertensives as above, as well as, daily aspirin and statin therapy. Patient is followed by Dr. Montano; spoke with Dr. Garcia prior to discharge. Patient had an echocardiogram completed in office w/in the last month showing improved ejection fraction. Does not beileve patient requires AIDC at this time; medications have been adjusted as above. Patient is educated on improtance of medication and dietary compliance. He is encouraged to weight daily and notify Dr. Garcia of any gain >2lbs. He is instructed to follow up with Dr. Garcia within 1 week for further evaluation and management. (3) Diabetes mellitus Is this a current diagnosis for this admission?: Yes Summary: Patient is placed on a consistent carb/cardiac diet. Continue home medication regiment. (4) Hyperlipidemia Is this a current diagnosis for this admission?: Yes Summary: Cardiac diet. Continue home dose atorvastatin. - Additional Information Resuscitation Status: Full Code Discharge Diet: Cardiac, Diabetic Discharge Activity: Activity As Tolerated, Balance Activity w/Rest, Weigh Daily Prescriptions: Aspirin [Ecotrin 81 mg EC Tablet] 81 mg PO DAILY #90 tabec Clonidine HCl [Catapres 0.1 mg Tablet] 0.2 mg PO Q8 #90 tablet Lorazepam [Ativan 1 mg Tablet] 1 mg PO Q8HP PRN #12 tab PRN Reason: anxiety/panic attack Paroxetine HCl [Paxil 20 mg Tablet] 20 mg PO DAILY #30 tablet Home Medications: Atorvastatin Calcium [Lipitor 20 mg Tablet] 20 mg PO QHS 10/05/18 Furosemide [Lasix 40 mg Tablet] 40 mg PO BID 10/05/18 Hydralazine HCl [Apresoline 50 mg Tablet] 50 mg PO QID 10/05/18 Insulin Glargine,Hum.rec.anlog [Lantus Insulin 100 Unit/1 ml 10 ml] 10 units SQ QHS 10/05/18 Insulin Lispro Protamin/Lispro [Humalog Mix 50-50 100 unit/mL] 0 units SQ .PERSLIDINGSCALE 10/05/18 Lisinopril [Zestril] 20 mg PO DAILY 10/05/18 Metformin HCl [Glucophage 500 mg Tablet] 500 mg PO BID 10/05/18 Metoprolol Succinate [Toprol Xl 50 mg Tab.sr] 50 mg PO TID 10/05/18 Acetaminophen [Tylenol 325 mg Tablet] 650 mg PO Q4HP PRN tablet 10/06/18 Aspirin [Ecotrin 81 mg EC Tablet] 81 mg PO DAILY #90 tabec 10/06/18 Clonidine HCl [Catapres 0.1 mg Tablet] 0.2 mg PO Q8 #90 tablet 10/06/18 Lorazepam [Ativan 1 mg Tablet] 1 mg PO Q8HP PRN #12 tab 10/06/18 Paroxetine HCl [Paxil 20 mg Tablet] 20 mg PO DAILY #30 tablet 10/06/18 History of Present Illness History of Present Illness: TANYA CLEARY JR is a 48 year old male with a past medical history of CHF (LVEF known to be 40%; followed by Dr. Montano), hypertension, hyperlipidemia, insulin-dependent diabetes mellitus, MORAIMA, and obesity who presents to the emergency department today with a complaint of worsening dyspnea, orthopnea, and edema. He denies recent medication changes or dietary indiscretion. Evaluation in the emergency department revealed mild pulmonary vascular congestion by chest x-ray, EKG demonstrating NSR with first-degree AV block and LVH, baseline anemia (hemoglobin 8.9), mildly elevated proBNP to 3700, and initial blood pressures 187/120. He is referred to the hospitalist service for admission and management of CHF exacerbation with hypertensive urgency. Physical Exam Vital Signs: Temp Pulse Resp BP Pulse Ox 97.7 F 82 16 161/93 H 98 10/06/18 12:31 10/06/18 12:31 10/06/18 12:31 10/06/18 12:31 10/06/18 12:31 General appearance: PRESENT: no acute distress, cooperative, well-developed, well-nourished Head exam: PRESENT: atraumatic, normocephalic Eye exam: PRESENT: conjunctiva pink, EOMI, PERRLA. ABSENT: scleral icterus Ear exam: PRESENT: normal external ear exam Mouth exam: PRESENT: moist, tongue midline Neck exam: ABSENT: carotid bruit, JVD, lymphadenopathy, thyromegaly Respiratory exam: PRESENT: clear to auscultation walter, symmetrical, unlabored. ABSENT: rales, rhonchi, wheezes Cardiovascular exam: PRESENT: RRR. ABSENT: diastolic murmur, rubs, systolic murmur Pulses: PRESENT: normal dorsalis pedis pul Vascular exam: PRESENT: normal capillary refill GI/Abdominal exam: PRESENT: normal bowel sounds, soft. ABSENT: distended, guar ding, mass, organolmegaly, rebound, tenderness Rectal exam: PRESENT: deferred Extremities exam: PRESENT: full ROM, pedal edema - trace. ABSENT: calf tenderness, clubbing Neurological exam: PRESENT: alert, awake, oriented to person, oriented to place, oriented to time, oriented to situation, CN II-XII grossly intact. ABSENT: motor sensory deficit Psychiatric exam: PRESENT: appropriate affect, normal mood. ABSENT: homicidal ideation, suicidal ideation Skin exam: PRESENT: dry, intact, warm. ABSENT: cyanosis, rash Results Laboratory Results: 10/06/18 04:45 10/06/18 04:45 10/05/18 10/06/18 05:15 04:45 Troponin I 0.085 NT-Pro-B Natriuret Pep 3700 H 1400 H Impressions: Chest X-Ray 10/05/18 04:57 IMPRESSION: Mild pulmonary vascular congestion copyright 2011 [employer]- All Rights Reserved Qualifiers - * PATIENT BEING DISCHARGED WITH ANY OF THE FOLLOWING DIAGNOSIS: No Acute Heart Failure Is this a Heart Failure Patient?: Yes Documentation of LVEF assessment?: Yes a) Discharged on ACEI?: Yes b) Discharges on ARB?: N/A-Discharged on ARNI Reason(s) not discharged on ARNI: ACEI use within the prior 36 hours d) Discharged on evidence-based Beta russel(carvedilol, sustained release metoprolol succinate, or bisoprolol)?: Yes e) For LVEF <35%, discharged on Aldosterone antagonist?: No-document contr aincations Reason(s) not discharged on Aldosterone antagonist for LVEF < 35%: Other - medication per Cardiology 3. Anticoagulant therapy for permanect/persistent/paraoxysmal Afib or Aflutter: N/A Plan Discharge Plan: Follow up with primary care provider within [address] Garcia's office on Monday to schedule follow up appointment. Take medications as prescribed. Eat a low sodium diet. Weigh daily and report any weight gain of >2lbs overnight. Return to the emergency department as needed for concerning symptoms. Time Spent: Greater than 30 Minutes
== END 2018-10-06 12:35 | disposition home or self-care (01) ==
LOC: ER 04:42 → EH 08:31 → INTOOBSV 08:31 → 4N 12:30
PROVIDERS: ADMIT Internal Medicine; ATTEND Internal Medicine
DX: I16.0 Hypertensive urgency (principal); I11.0 Hypertensive heart disease with heart failure; I50.43 Acute on chronic combined systolic (congestive) and diastolic (congestive) heart failure; I27.20 Pulmonary hypertension, unspecified; E11.9 Type 2 diabetes mellitus without complications; E78.5 Hyperlipidemia, unspecified; D64.9 Anemia, unspecified; I44.0 Atrioventricular block, first degree; E66.9 Obesity, unspecified; F41.1 Generalized anxiety disorder; F41.0 Panic disorder [episodic paroxysmal anxiety]; Z79.4 Long term (current) use of insulin; Z87.828 Personal history of other (healed) physical injury and trauma; Z82.49 Family history of ischemic heart disease and other diseases of the circulatory system; Z79.899 Other long term (current) drug therapy
CPT/HCPCS: 93005; 99285; 96374; 36415 ×2; 82962 ×2; 82607; 82728; 82746; 83540; 83550; 85025; 85027; 85045; 80048; 80053; 84484; 83880 ×2; 93306; 71045; 93010; J1756; J1815 ×3; J1644 ×2; J1940 ×2; J3490 ×4; J2060; G0378

== ENCOUNTER 2018-11-11 09:05 | Emergency (ER) | payer BC ==
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
[2018-11-11 10:18] LABS: HEMATOCRIT 32.7 % (37.9-51.0); HEMOGLOBIN 9.4 g/dL (13.5-17.0); MEAN CORPUSCULAR HEMOGLOBIN 17.6 pg (27.0-33.4); MEAN CORPUSCULAR HGB CONC 28.7 g/dL (32.0-36.0); PLATELET COUNT 216 10^3/uL (150-450); RED BLOOD COUNT 5.32 10^6/uL (4.35-5.55); RED CELL DISTRIBUTION WIDTH 19.1 % (11.5-14.0); WHITE BLOOD COUNT 20.8 10^3/uL (4.0-10.5)
--- NOTE | 2018-11-11 10:29 | RADIOLOGY REPORT (SQ) ---
EXAM DESCRIPTION: CHEST 2 VIEWS COMPLETED DATE/TIME: 11/11/2018 10:15 am REASON FOR STUDY: DIFF BREATHING COMPARISON: 10/05/2018. NUMBER OF VIEWS: Two view. TECHNIQUE: Frontal and lateral radiographic views of the chest acquired. LIMITATIONS: None. FINDINGS: LUNGS AND PLEURA: No opacities, masses or pneumothorax. No pleural effusion. MEDIASTINUM AND HILAR STRUCTURES: No masses. No contour abnormalities. HEART AND VASCULAR STRUCTURES: Heart enlarged without failure. Aorta normal for age. BONES: No acute findings. HARDWARE: None in the chest. OTHER: No other significant finding. IMPRESSION: CARDIAC ENLARGEMENT WITHOUT FAILURE. TECHNICAL DOCUMENTATION: JOB ID: [id number] [employer]- All Rights Reserved Reading location - IP/workstation name: [email or web address]
[2018-11-11 10:30] LABS: ALANINE AMINOTRANSFERASE 49 U/L (21-72); ALBUMIN 3.2 g/dL (3.5-5.0); ALKALINE PHOSPHATASE 68 U/L (38-126); ANION GAP 7 (5-19); ASPARTATE AMINO TRANSFERASE 22 U/L (17-59); BILIRUBIN,DIRECT 0.2 mg/dL (0.0-0.4); BILIRUBIN,TOTAL 0.6 mg/dL (0.2-1.3); BLOOD UREA NITROGEN 19 mg/dL (7-20); CALCIUM 10.1 mg/dL (8.4-10.2); CARBON DIOXIDE 26 mmol/L (22-30); CHLORIDE 105 mmol/L (98-107); CREATINE KINASE 131 U/L (55-170); GLUCOSE 168 mg/dL (75-110); POTASSIUM 3.8 mmol/L (3.6-5.0); SODIUM 137.5 mmol/L (137-145); TOTAL PROTEIN 5.8 g/dL (6.3-8.2)
[2018-11-11 10:39] LABS: APPEARANCE,URINE CLEAR; BILIRUBIN,URINE NEGATIVE (NEGATIVE); COLOR,URINE YELLOW; GLUCOSE, URINE >=500 mg/dL (NEGATIVE); KETONES,URINE NEGATIVE (NEGATIVE); LEUKOCYTE ESTERASE,URINE NEGATIVE (NEGATIVE); MEAN CORPUSCULAR VOLUME 62 fl (80-97); NITRITE,URINE NEGATIVE (NEGATIVE); PROTEIN,URINE 30 mg/dL (NEGATIVE); URINE SPECIFIC GRAVITY 1.016
[2018-11-11 10:41] LABS: ABSOLUTE LYMPHOCYTES# (MANUAL) 0.2 10^3/uL (0.5-4.7); ABSOLUTE MONOCYTES # (MANUAL) 1.2 10^3/uL (0.1-1.4); BASOPHILS % (MANUAL) 0 % (0-2); EOSINOPHILS % (MANUAL) 0 % (0-6); LYMPHOCYTES % (MANUAL) 1 % (13-45); MONOCYTES % (MANUAL) 6 % (3-13); SEGMENTED NEUTROPHILS % (MAN) 93 % (42-78); TOTAL CELLS COUNTED 100
[2018-11-11 10:43] LABS: ANISOCYTOSIS 2+; HYPOCHROMASIA 3+; OVALOCYTES 2+; PLATELET COMMENT ADEQUATE; POIKILOCYTOSIS 2+; POLYCHROMASIA SLIGHT; TEAR DROP CELLS SLIGHT
[2018-11-11] MEDS ORDERED: NORMAL SALINE 1000 ML 1,000 ML IV ONE (10:46)
[2018-11-11] MEDS ORDERED: ONDANSETRON HCL INJ/PF 4 MG/2 ML SDV IV ONE (10:47)
[2018-11-11] MEDS ORDERED: MORPHINE SULFATE 10 MG/ML INJ IV ONE ×2 (10:47→20:18)
[2018-11-11 10:48] LABS: TROPONIN I 0.048 ng/mL
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
--- NOTE | 2018-11-11 12:33 | RADIOLOGY REPORT (SQ) ---
EXAM DESCRIPTION: U/S SCROTUM W/DOPPLER COMPLETED DATE/TIME: 11/11/2018 11:54 am REASON FOR STUDY: scrotum erythema, pain, edema COMPARISON: None. TECHNIQUE: Static and realtime dwyer scale imaging of the scrotum and testes. Selected color Doppler and spectral images recorded to document blood flow. LIMITATIONS: None. FINDINGS: RIGHT: TESTICLE: Normal size. Normal echotexture. Normal blood flow. No mass. EPIDIDYMIS: Normal. HYDROCELE OR VARICOCELE: Large hydrocele. HERNIA OR EXTRA-TESTICULAR MASS: No. OTHER: Mildly thickened scrotum. LEFT: TESTICLE: Normal size. Normal echotexture. Normal blood flow. No mass. EPIDIDYMIS: Mildly enlarged. HYDROCELE OR VARICOCELE: Moderate hydrocele. HERNIA OR EXTRA-TESTICULAR MASS: No. OTHER: Mildly thickened scrotum. IMPRESSION: 1. Large right, moderate left hydroceles. 2. Mildly enlarged left epididymis without significant heterogeneity or hyperemia. 3. Mild thickening of the scrotum. 4. The bilateral testicles are normal in size and appearance. Arterial and venous Doppler flow are present bilaterally. TECHNICAL DOCUMENTATION: JOB ID: [id number] [employer]- All Rights Reserved Reading location - IP/workstation name: [email or web address]
[2018-11-11] MEDS ORDERED: LEVOFLOXACIN 500 MG/D5W RTU 500 MG/100 ML RTUPB IV ONE (12:48)
--- NOTE | 2018-11-11 13:34 | ER Document Report ---
Doctor's Note Notes: 11/11/18 13:30 Patient seen in conjunction with the physician showroom sales assistant, please see her note correlate with mine. In short this is a 48-year-old gentleman who presents to the emergency department for evaluation of fever and edema. He states he has swelling in his chest wall, scrotum, legs. Is been going on over a few days. He thought it was secondary to clonidine, which she just recently started. He had a fever of 101 yesterday. Physical exam here reveals an afebrile gentleman in a mild amount of distress. He does have 3+ pitting edema to bilateral lower extremity's. He has marked scrotal edema and erythema, as well as tenderness. Heart is regular rate and rhythm, lung exam is limited by her body habitus but is largely unremarkable. Laboratory investigations revealed a 20,000 white count. His findings are most consistent with epididymitis/sepsis. IV fluids were administered, but only judiciously given his history of CHF and his elevated proBNP. Given the likely need for urological involvement, the patient will require transfer. This is pending at this time. Patient given IV Levaquin, will transfer to Center with urological coverage.
[2018-11-11] MEDS ORDERED: METOPROLOL SUCCINATE 50 MG TAB.SR.24H PO ONE (16:27)
[2018-11-11] MEDS ORDERED: HYDRALAZINE HCL 50 MG TABLET PO ONE ×2 (18:00→20:18)
[2018-11-11] MEDS ORDERED: FUROSEMIDE 40 MG TABLET PO ONE (18:02)
[2018-11-11] MEDS ORDERED: DEXTROSE 50%-WATER 25 GM/50 ML DISP.SYRIN IV PRN ×2 (18:31)
[2018-11-11] MEDS ORDERED: DEXTROSE 40% GEL 15 GM TUBE PO PRN ×2 (18:31)
[2018-11-11] MEDS ORDERED: GLUCAGON,HUMAN RECOMB 1 MG INJ IM PRN (18:31)
[2018-11-11] MEDS: INSULIN REG, HUMAN 100 UNIT/ML 3 ML VIAL (PYX) SUBCUT SCH (18:55)
[2018-11-11 20:54] LABS: CHLAM PCR NOT DETECTED (NOT DETECT)
--- NOTE | 2018-11-11 22:24 | EKG REPORT ---
SEVERITY:- ABNORMAL ECG - SINUS RHYTHM FIRST DEGREE AV BLOCK LEFT ATRIAL ABNORMALITY NONSPECIFIC INTRAVENTRICULAR CONDUCTION DELAY : Confirmed by: Jennifer Jose 11-Nov-2018 22:23:41
[2018-11-11] MEDS ORDERED: PROMETHAZINE HCL INJ 25 MG/1 ML VIAL IM ONE (22:56)
[2018-11-11] MEDS ORDERED: DOCUSATE SODIUM 100 MG CAPSULE PO ONE (23:32)
[2018-11-12] MEDS ORDERED: HYDROMORPHONE HCL INJ/PF 2 MG/ML AMPULE IV ONE (07:38)
[2018-11-12] MEDS ORDERED: LISINOPRIL 10 MG TABLET PO SCH (07:45)
[2018-11-12] MEDS: INSULIN REG, HUMAN 100 UNIT/ML 3 ML VIAL (PYX) SUBCUT SCH ×3 (08:01→15:47)
[2018-11-12] MEDS: METOPROLOL SUCCINATE 50 MG TAB.SR.24H PO SCH ×4 (08:03→17:23)
[2018-11-12] MEDS: HYDRALAZINE HCL 50 MG TABLET PO SCH ×5 (08:03→22:13)
[2018-11-12 08:28] LABS: ABSOLUTE BASOPHILS # (AUTO) 0.1 10^3/uL (0.0-0.2); ABSOLUTE EOSINOPHILS # (AUTO) 0.1 10^3/uL (0.0-0.6); ABSOLUTE NEUT (AUTO) 8.5 10^3/uL (1.7-8.2); BASOPHILS % (AUTO) 0.9 % (0-2); EOSINOPHILS % (AUTO) 0.7 % (0-6); HEMATOCRIT 30.9 % (37.9-51.0); HEMOGLOBIN 8.8 g/dL (13.5-17.0); LYMPHOCYTES % (AUTO) 9.4 % (13-45); MEAN CORPUSCULAR HEMOGLOBIN 17.7 pg (27.0-33.4); MEAN CORPUSCULAR HGB CONC 28.6 g/dL (32.0-36.0); MEAN CORPUSCULAR VOLUME 62 fl (80-97); MONOCYTES % (AUTO) 9.5 % (3-13); PLATELET COUNT 199 10^3/uL (150-450); RED BLOOD COUNT 5.01 10^6/uL (4.35-5.55); RED CELL DISTRIBUTION WIDTH 18.9 % (11.5-14.0); SEGMENTED NEUTROPHILS % (AUTO) 79.5 % (42-78); TOTAL CELLS COUNTED % (AUTO) 100 %; WHITE BLOOD COUNT 10.7 10^3/uL (4.0-10.5)
[2018-11-12 08:51] LABS: ALANINE AMINOTRANSFERASE 41 U/L (21-72); ALBUMIN 2.7 g/dL (3.5-5.0); ALKALINE PHOSPHATASE 59 U/L (38-126); ASPARTATE AMINO TRANSFERASE 18 U/L (17-59); BILIRUBIN,DIRECT 0.2 mg/dL (0.0-0.4); BILIRUBIN,TOTAL 0.5 mg/dL (0.2-1.3); BLOOD UREA NITROGEN 14 mg/dL (7-20); CALCIUM 9.5 mg/dL (8.4-10.2); CARBON DIOXIDE 27 mmol/L (22-30); GLUCOSE 223 mg/dL (75-110); POTASSIUM 3.9 mmol/L (3.6-5.0); TOTAL PROTEIN 5.3 g/dL (6.3-8.2)
[2018-11-12 08:57] LABS: ANION GAP 5 (5-19); CHLORIDE 106 mmol/L (98-107); SODIUM 137.6 mmol/L (137-145)
[2018-11-12 09:09] LABS: ANISOCYTOSIS 2+; HYPOCHROMASIA 2+; OVALOCYTES 1+; PLATELET COMMENT ADEQUATE; POIKILOCYTOSIS 1+; POLYCHROMASIA SLIGHT
--- NOTE | 2018-11-12 09:36 | ER Document Report ---
Doctor's Note Notes: 11/12/18 09:35 48-year-old diabetic male patient with scrotal swelling is pending transfer to [facility]. Patient reports that his scrotal swelling is much improved from yesterday at this time. His white blood cell count has dropped from 20,000-10,000 since yesterday. He has been treated with Levaquin. His ultrasound did show bilateral hydroceles with some possible epididymitis. Physical exam at this time shows grossly swollen testicles that are not particularly tender. There is no heat or erythema noted at this time. There is no extension into the perineum noted.
[2018-11-12] MEDS: LEVOFLOXACIN 500 MG/D5W RTU 500 MG/100 ML RTUPB IV SCH (11:49)
[2018-11-12] MEDS: FUROSEMIDE 40 MG TABLET PO SCH ×2 (11:50→17:23)
[2018-11-12] MEDS ORDERED: DOCUSATE SODIUM 100 MG CAPSULE PO ONE (14:30)
[2018-11-12 15:28] LABS: PATH REVIEW PATHOLOGIST REVIEWED
[2018-11-12] MEDS ORDERED: AMLODIPINE BESYLATE 5 MG TABLET PO ONE (16:06)
[2018-11-12] MEDS ORDERED: METOPROLOL TARTRATE PF/INJ 5 MG/5 ML SDV IV PRN (16:09)
[2018-11-12] MEDS ORDERED: LORAZEPAM 1 MG TABLET PO PRN (16:48)
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
[2018-11-12] MEDS ORDERED: INSULIN GLARGINE,HUM.REC.ANLOG 1,000 UNIT/10 ML VIAL SUBCUT SCH (22:00)
[2018-11-13] MEDS ORDERED: HYDRALAZINE HCL INJ/PF 20 MG/1 ML SDV IV ONE (02:17)
[2018-11-13] MEDS: INSULIN REG, HUMAN 100 UNIT/ML 3 ML VIAL (PYX) SUBCUT SCH ×2 (08:14→12:46)
[2018-11-13] MEDS ORDERED: ASPIRIN 81 MG TABLET, ENT COATED PO SCH (10:00)
[2018-11-13] MEDS ORDERED: PAROXETINE HCL 20 MG TABLET PO SCH (10:00)
[2018-11-13] MEDS: HYDRALAZINE HCL 50 MG TABLET PO SCH ×2 (10:54→14:17)
[2018-11-13] MEDS: FUROSEMIDE 40 MG TABLET PO SCH (10:54)
[2018-11-13] MEDS: LEVOFLOXACIN 500 MG/D5W RTU 500 MG/100 ML RTUPB IV SCH (10:55)
[2018-11-13] MEDS: METOPROLOL SUCCINATE 50 MG TAB.SR.24H PO SCH ×2 (10:55→14:17)
[2018-11-13 13:09] LABS: ABSOLUTE BASOPHILS # (AUTO) 0.1 10^3/uL (0.0-0.2); ABSOLUTE EOSINOPHILS # (AUTO) 0.1 10^3/uL (0.0-0.6); ABSOLUTE LYMPHOCYTES (AUTO) 0.8 10^3/uL (0.5-4.7); ABSOLUTE MONOCYTES (AUTO) 0.8 10^3/uL (0.1-1.4); ABSOLUTE NEUT (AUTO) 6.8 10^3/uL (1.7-8.2); EOSINOPHILS % (AUTO) 1.5 % (0-6); HEMATOCRIT 32.1 % (37.9-51.0); HEMOGLOBIN 9.3 g/dL (13.5-17.0); LYMPHOCYTES % (AUTO) 9.2 % (13-45); MEAN CORPUSCULAR HEMOGLOBIN 17.9 pg (27.0-33.4); MEAN CORPUSCULAR HGB CONC 28.8 g/dL (32.0-36.0); MEAN CORPUSCULAR VOLUME 62 fl (80-97); MONOCYTES % (AUTO) 9.7 % (3-13); PLATELET COUNT 246 10^3/uL (150-450); RED BLOOD COUNT 5.17 10^6/uL (4.35-5.55); SEGMENTED NEUTROPHILS % (AUTO) 78.6 % (42-78); TOTAL CELLS COUNTED % (AUTO) 100 %; WHITE BLOOD COUNT 8.6 10^3/uL (4.0-10.5)
[2018-11-13 13:28] LABS: ALANINE AMINOTRANSFERASE 35 U/L (21-72); ALBUMIN 3.3 g/dL (3.5-5.0); ALKALINE PHOSPHATASE 70 U/L (38-126); ANION GAP 8 (5-19); ASPARTATE AMINO TRANSFERASE 21 U/L (17-59); BILIRUBIN,DIRECT 0.2 mg/dL (0.0-0.4); BILIRUBIN,TOTAL 0.5 mg/dL (0.2-1.3); BLOOD UREA NITROGEN 11 mg/dL (7-20); CALCIUM 10.3 mg/dL (8.4-10.2); CARBON DIOXIDE 25 mmol/L (22-30); CHLORIDE 104 mmol/L (98-107); GLUCOSE 209 mg/dL (75-110); POTASSIUM 3.7 mmol/L (3.6-5.0); SODIUM 136.7 mmol/L (137-145); TOTAL PROTEIN 6.2 g/dL (6.3-8.2)
[2018-11-13 13:56] LABS: OVALOCYTES SLIGHT; TEAR DROP CELLS SLIGHT
[2018-11-13 13:57] LABS: ANISOCYTOSIS 1+
[2018-11-13 14:00] LABS: PLATELET COMMENT ADEQUATE
[2018-11-13 15:16] VITALS: BP 170/104
== END 2018-11-13 14:45 | disposition home or self-care (01) ==
LOC: ER 09:05
DX: A41.9 Sepsis, unspecified organism (principal); N45.1 Epididymitis; K59.00 Constipation, unspecified; I10 Essential (primary) hypertension; E11.9 Type 2 diabetes mellitus without complications; R07.9 Chest pain, unspecified; R10.30 Lower abdominal pain, unspecified; M79.604 Pain in right leg; M79.605 Pain in left leg; R50.9 Fever, unspecified; R53.81 Other malaise; R53.1 Weakness; R06.02 Shortness of breath; Z91.013 Allergy to seafood; Z88.8 Allergy status to other drugs, medicaments and biological substances; Z87.891 Personal history of nicotine dependence
CPT/HCPCS: 93005; 36415; 87040; 87086; 82962; 82550; 85025; 87088; 80053; 81001; 84484; 87186; 87491; 87591; 83605; 83880; 71046; 76870; 93976; 93010; J1956 ×3; J1815 ×4; J0360; J3490; J2270; J1170; J2550; J2405; J7030

== ENCOUNTER 2018-11-22 00:53 | Emergency (ER) | payer BC ==
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
[2018-11-22 01:45] LABS: ABSOLUTE BASOPHILS # (AUTO) 0.1 10^3/uL (0.0-0.2); ABSOLUTE EOSINOPHILS # (AUTO) 0.1 10^3/uL (0.0-0.6); ABSOLUTE LYMPHOCYTES (AUTO) 0.8 10^3/uL (0.5-4.7); ABSOLUTE MONOCYTES (AUTO) 0.7 10^3/uL (0.1-1.4); ABSOLUTE NEUT (AUTO) 6.2 10^3/uL (1.7-8.2); EOSINOPHILS % (AUTO) 0.7 % (0-6); HEMATOCRIT 31.9 % (37.9-51.0); HEMOGLOBIN 9.1 g/dL (13.5-17.0); LYMPHOCYTES % (AUTO) 10.7 % (13-45); MEAN CORPUSCULAR HEMOGLOBIN 17.6 pg (27.0-33.4); MEAN CORPUSCULAR HGB CONC 28.5 g/dL (32.0-36.0); MEAN CORPUSCULAR VOLUME 62 fl (80-97); MONOCYTES % (AUTO) 9.3 % (3-13); PLATELET COUNT 248 10^3/uL (150-450); RED BLOOD COUNT 5.18 10^6/uL (4.35-5.55); RED CELL DISTRIBUTION WIDTH 19.3 % (11.5-14.0); SEGMENTED NEUTROPHILS % (AUTO) 78.3 % (42-78); TOTAL CELLS COUNTED % (AUTO) 100 %; WHITE BLOOD COUNT 7.9 10^3/uL (4.0-10.5)
[2018-11-22] MEDS: NITROGLYCERIN 0.4 MG/TAB 25 TAB/BOTTLE SL PRN ×2 (01:45→02:11)
[2018-11-22 01:57] LABS: ALANINE AMINOTRANSFERASE 44 U/L (21-72); ALBUMIN 3.5 g/dL (3.5-5.0); ALKALINE PHOSPHATASE 66 U/L (38-126); ANION GAP 6 (5-19); ASPARTATE AMINO TRANSFERASE 30 U/L (17-59); BILIRUBIN,DIRECT 0.2 mg/dL (0.0-0.4); BILIRUBIN,TOTAL 0.6 mg/dL (0.2-1.3); BLOOD UREA NITROGEN 23 mg/dL (7-20); CALCIUM 10.8 mg/dL (8.4-10.2); CARBON DIOXIDE 25 mmol/L (22-30); CHLORIDE 106 mmol/L (98-107); GLUCOSE 199 mg/dL (75-110); POTASSIUM 4.1 mmol/L (3.6-5.0); SODIUM 137.3 mmol/L (137-145); TOTAL PROTEIN 6.3 g/dL (6.3-8.2)
[2018-11-22 02:11] LABS: TROPONIN I 0.069 ng/mL
--- NOTE | 2018-11-22 02:14 | RADIOLOGY REPORT (SQ) ---
EXAM DESCRIPTION: XR CHEST 1 VIEW COMPLETED DATE/TME: 11/22/2018 01:27 CLINICAL HISTORY: 48 years, Male, shortness of breath COMPARISON: 10/05/2018 chest NUMBER OF VIEWS: 1 TECHNIQUE: Portable chest LIMITATIONS: None. FINDINGS: Stable cardiomegaly. Lungs are clear. No pneumothorax IMPRESSION: Cardiomegaly. Lungs are clear copyright 2011 [employer]- All Rights Reserved
[2018-11-22] MEDS ORDERED: ASPIRIN 81 MG TABLET, CHEWABLE PO ONE (02:45)
[2018-11-22 02:46] LABS: ANISOCYTOSIS 2+; PLATELET COMMENT ADEQUATE
[2018-11-22] MEDS ORDERED: NITROGLYCERIN 2% OINTMENT 1 GM PACKET TP ONE (02:46)
--- NOTE | 2018-11-22 05:01 | RADIOLOGY REPORT (SQ) ---
CLINICAL HISTORY: SOB, dyspnea on exertion, recent immobility COMPARISON: None. TECHNIQUE: CT CHEST ANGIOGRAPHY WITHOUT THEN WITH IV CONTRAST on 11/22/2018 2:46 AM CDT. MIPS reconstructions were generated. This exam was performed according to our departmental dose-optimization program, which includes automated exposure control, adjustment of the mA and/or kV according to patient size and/or use of iterative reconstruction technique. MIP images were generated. FINDINGS: Thoracic aorta is normal in course and caliber without aneurysm or dissection. Pulmonary arteries are adequately opacified without acute or chronic filling defects. The heart is grossly enlarged. There is no pericardial effusion. Intrathoracic lymph nodes are not enlarged. There is no pleural effusion, pleural thickening or pneumothorax. Central airways are patent. Lungs are clear with no consolidation, mass or interstitial lung disease. There are no acute abnormalities within the limited images of the upper abdomen. There are no acute osseous findings. No suspicious bony lesions. IMPRESSION: Significant cardiomegaly with no aortic dissection or aneurysm. No pulmonary embolus. No pneumonia.
[2018-11-22] MEDS ORDERED: MORPHINE SULFATE 10 MG/ML INJ IV ONE (05:10)
[2018-11-22 07:06] VITALS: BP 162/125
--- NOTE | 2018-11-22 20:03 | EKG REPORT ---
SEVERITY:- ABNORMAL ECG - SINUS RHYTHM FIRST DEGREE AV BLOCK LEFT ATRIAL ABNORMALITY LEFT VENTRICULAR HYPERTROPHY BORDERLINE PROLONGED QT INTERVAL : Confirmed by: Mariana Montano MD 22-Nov-2018 20:02:25
--- NOTE | 2018-11-22 20:03 | EKG REPORT ---
SEVERITY:- ABNORMAL ECG - SINUS RHYTHM FIRST DEGREE AV BLOCK LEFT ATRIAL ABNORMALITY BORDERLINE T ABNORMALITIES, ANT-LAT LEADS BORDERLINE PROLONGED QT INTERVAL : Confirmed by: Mariana Montano MD 22-Nov-2018 20:02:30
== END 2018-11-22 06:20 | disposition home or self-care (01) ==
LOC: ER 00:53
DX: R07.9 Chest pain, unspecified (principal); I11.0 Hypertensive heart disease with heart failure; I50.30 Unspecified diastolic (congestive) heart failure; Z79.899 Other long term (current) drug therapy; R06.02 Shortness of breath; I44.0 Atrioventricular block, first degree; R06.09 Other forms of dyspnea; E11.9 Type 2 diabetes mellitus without complications; Z91.013 Allergy to seafood; Z88.8 Allergy status to other drugs, medicaments and biological substances
CPT/HCPCS: 93005; 99285; 96374; 36415; 85025; 80053; 84484; 83880; 71045; 71275; 93010; J2270

== ENCOUNTER 2018-11-26 22:16 | Emergency (ER) | payer BC ==
[2018-11-26] MEDS ORDERED: ASPIRIN 81 MG TABLET, CHEWABLE PO ONE (22:40)
[2018-11-26 23:42] LABS: ABSOLUTE BASOPHILS # (AUTO) 0.1 10^3/uL (0.0-0.2); ABSOLUTE EOSINOPHILS # (AUTO) 0.1 10^3/uL (0.0-0.6); ABSOLUTE LYMPHOCYTES (AUTO) 0.8 10^3/uL (0.5-4.7); ABSOLUTE MONOCYTES (AUTO) 0.6 10^3/uL (0.1-1.4); ABSOLUTE NEUT (AUTO) 5.6 10^3/uL (1.7-8.2); HEMATOCRIT 32.4 % (37.9-51.0); HEMOGLOBIN 9.2 g/dL (13.5-17.0); LYMPHOCYTES % (AUTO) 10.8 % (13-45); MEAN CORPUSCULAR HEMOGLOBIN 17.6 pg (27.0-33.4); MEAN CORPUSCULAR HGB CONC 28.5 g/dL (32.0-36.0); MEAN CORPUSCULAR VOLUME 62 fl (80-97); MONOCYTES % (AUTO) 8.4 % (3-13); PLATELET COUNT 277 10^3/uL (150-450); RED BLOOD COUNT 5.24 10^6/uL (4.35-5.55); RED CELL DISTRIBUTION WIDTH 19.3 % (11.5-14.0); SEGMENTED NEUTROPHILS % (AUTO) 78.8 % (42-78); TOTAL CELLS COUNTED % (AUTO) 100 %; WHITE BLOOD COUNT 7.2 10^3/uL (4.0-10.5)
--- NOTE | 2018-11-26 23:48 | RADIOLOGY REPORT (SQ) ---
EXAM DESCRIPTION: XR CHEST 2 VIEWS COMPLETED DATE/TME: 11/26/2018 00:00 CLINICAL HISTORY: 48 years Male, cp COMPARISON: 11/23/18 NUMBER OF VIEWS/TECHNIQUE: 2, Frontal, Lateral FINDINGS: Adequate lung volume, pulmonary vascular congestion, mildly enlarged cardiac silhouette, and intact bony thorax. IMPRESSION: Pulmonary vascular congestion. Mildly enlarged cardiac silhouette.
[2018-11-26 23:52] LABS: ALANINE AMINOTRANSFERASE 41 U/L (21-72); ALBUMIN 3.3 g/dL (3.5-5.0); ALKALINE PHOSPHATASE 71 U/L (38-126); ASPARTATE AMINO TRANSFERASE 25 U/L (17-59); BILIRUBIN,DIRECT 0.2 mg/dL (0.0-0.4); BILIRUBIN,TOTAL 0.7 mg/dL (0.2-1.3); BLOOD UREA NITROGEN 18 mg/dL (7-20); CALCIUM 10.4 mg/dL (8.4-10.2); CARBON DIOXIDE 25 mmol/L (22-30); CREATINE KINASE 136 U/L (55-170); GLUCOSE 153 mg/dL (75-110)
[2018-11-26 23:57] LABS: CHLORIDE 106 mmol/L (98-107)
[2018-11-26 23:58] LABS: ANION GAP 6 (5-19)
[2018-11-27 00:04] LABS: CREATINE KINASE MB 2.63 ng/mL (<4.55)
[2018-11-27 00:09] LABS: TROPONIN I 0.313 ng/mL
[2018-11-27 00:34] LABS: ANISOCYTOSIS 2+; OVALOCYTES 1+; POIKILOCYTOSIS 1+; SCHISTOCYTES 1+
[2018-11-27 00:35] LABS: PLATELET COMMENT ADEQUATE
[2018-11-27] MEDS ORDERED: ASPIRIN 81 MG TABLET, CHEWABLE ONE (00:46)
[2018-11-27] MEDS ORDERED: ENOXAPARIN SODIUM INJ 120 MG/0.8 ML DISP.SYRIN SUBCUT ONE (01:39)
[2018-11-27] MEDS ORDERED: FUROSEMIDE INJ/PF 40 MG/4 ML SDV IV ONE (01:39)
[2018-11-27] MEDS: NITROGLYCERIN 0.4 MG/TAB 25 TAB/BOTTLE SL PRN ×4 (02:01→02:54)
[2018-11-27] MEDS ORDERED: NITROGLYCERIN/D5W 50 MG/250 ML RTUINJ IV PRN (04:00)
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
[2018-11-27 08:14] VITALS: BP 166/101
--- NOTE | 2018-11-27 18:44 | EKG REPORT ---
SEVERITY:- ABNORMAL ECG - SINUS RHYTHM FIRST DEGREE AV BLOCK LEFT ATRIAL ABNORMALITY NONSPECIFIC INTRAVENTRICULAR CONDUCTION DELAY NONSPECIFIC ST-T CHANGES ANTEROLATERAL LEADS : Confirmed by: Roberto Bonilla MD 27-Nov-2018 18:43:14
--- NOTE | 2018-11-27 18:44 | EKG REPORT ---
SEVERITY:- ABNORMAL ECG - SINUS RHYTHM FIRST DEGREE AV BLOCK LEFT ATRIAL ABNORMALITY NONSPECIFIC INTRAVENTRICULAR CONDUCTION DELAY LEFT VENTRICULAR HYPERTROPHY NONSPECIFIC LATERAL ST-T CHANGES : Confirmed by: Roberto Bonilla MD 27-Nov-2018 18:44:23
== END 2018-11-27 08:22 | disposition short-term general hospital (02) ==
LOC: ER 22:16
DX: I16.0 Hypertensive urgency (principal); I11.0 Hypertensive heart disease with heart failure; I50.33 Acute on chronic diastolic (congestive) heart failure; I21.3 ST elevation (STEMI) myocardial infarction of unspecified site; E11.9 Type 2 diabetes mellitus without complications; R07.9 Chest pain, unspecified; R06.82 Tachypnea, not elsewhere classified; R00.0 Tachycardia, unspecified; N64.59 Other signs and symptoms in breast; Z79.899 Other long term (current) drug therapy; Z91.013 Allergy to seafood; Z88.8 Allergy status to other drugs, medicaments and biological substances
CPT/HCPCS: 93005 ×2; 99291; 96372; 96375; 96365; 36415; 82553; 82550; 85025; 80053; 84484; 83880; 71046; 93010 ×2; J1940; J1650; J3490